=== PATIENT | female | born 1980 | race Caucasian/White ===

== ENCOUNTER 2018-07-22 10:48 | Outpatient (CLI) | payer OTHER, MEDICAID, SELFPAY ==
[2018-07-22 12:24] LABS: TSH (W/Ref FT4) 1.85 uIU/mL (0.358-3.74)
[2018-07-22 12:32] LABS: HCG Quant, Pregnancy < 1 mIU/mL (1-3)
[2018-07-23 13:52] LABS: Chlamydia Result Negative; GC Result Negative; Specimen Description URINE
== END 2018-07-22 11:08 ==
PROVIDERS: PCP Family Medicine; Visit Provider Nurse Practitioner Women's Health
DX: N93.9 Abnormal uterine and vaginal bleeding, unspecified (principal); Z11.3 Encounter for screening for infections with a predominantly sexual mode of transmission
CPT/HCPCS: 36415; 87491; 87591; 84443; 84702

== ENCOUNTER 2018-07-29 01:49 | Outpatient (CLI) | payer OTHER, MEDICAID, SELFPAY ==
--- NOTE | 2018-07-29 12:45 | DI.US_ITS ---
SYMPTOMS/DIAGNOSIS: ABNORMAL UTERINE BLEEDING, PELVIC PAIN, R10.2, N93.9, ? OVARIAN CYST PELVIC ULTRASOUND: A transabdominal and transvaginal examination was carried out. The uterus measures 8.4 x 5.3 x 6.3 cm with an endometrial stripe thickness of 7 mm. A small nabothian cyst is identified at the level of the cervix. A trace quantity of fluid is noted within the endometrial cavity at the level of the cervix. The right ovary measures 3.6 x 2.2 x 2.8 cm, the left ovary 5.7 x 2.0 x 3.0 cm. The kidneys are unremarkable. Note is also made of normal color flow in the ovaries. The left ovary is somewhat prominent, but no focal abnormality is seen. SUMMARY: A small nabothian cyst is demonstrated. There is a trace amount of fluid in the cervix. Note is made of some mild enlargement of the left ovary, which measures 5.7 cm.
== END 2018-07-29 02:09 ==
PROVIDERS: PCP Family Medicine; Visit Provider Nurse Practitioner Women's Health
DX: N93.9 Abnormal uterine and vaginal bleeding, unspecified (principal); R10.2 Pelvic and perineal pain; N83.8 Other noninflammatory disorders of ovary, fallopian tube and broad ligament; N88.8 Other specified noninflammatory disorders of cervix uteri
CPT/HCPCS: 76830; 76856

== ENCOUNTER 2018-10-22 12:49 | Outpatient (REF) | payer OTHER, MEDICAID, SELFPAY ==
[2018-10-22 21:20] LABS: Abs Immature Grans 0.01 k/cumm (0.0-0.09); Absolute Basophil Count 0.02 k/cumm (0.0-0.2); Absolute Eosinophil Count 0.07 k/cumm (0.0-0.7); Absolute Lymphocyte Count 1.65 k/cumm (1.2-3.4); Absolute Monocyte Count 0.51 k/cumm (0.11-0.7); Absolute Neutrophil Count 2.32 k/cumm (1.2-6.7); Basophils % 0.4; Eosinophils % 1.5; HCT 40.2 % (36.0-46.0); HGB 13.3 g/dL (12.0-15.5); Immature Grans % 0.2; Mean Corp. HGB Concentration 33.1 g/dL (32.0-36.0); Mean Corpuscular Hemoglobin 29.6 pg (27.0-33.0); Mean Corpuscular Volume 89.5 fL (80-95); Mean Platelet Volume 11.6 fL (8.0-11.0); Monocytes % 11.1; Neutrophils % 50.8; Platelet Count 259 x1000/uL (130-400); RBC 4.49 m/cumm (4.00-5.20); White Blood Cell Count 4.58 k/cumm (4.4-10.8)
[2018-10-26 00:11] LABS: Bartonella Henselae IgG <1:128 titer (<1:128); Bartonella Henselae IgM <1:20 titer (<1:20); Bartonella Quintana IgG <1:128 titer (<1:128); Bartonella Quintana IgM <1:20 titer (<1:20)
== END 2018-10-22 13:09 ==
LOC: NCHCN 12:49
PROVIDERS: PCP Family Medicine; Visit Provider Family Medicine
DX: R59.1 Generalized enlarged lymph nodes (principal)
CPT/HCPCS: 85025; 86611

== ENCOUNTER 2018-11-01 01:13 | Outpatient (CLI) | payer OTHER, SELFPAY ==
--- NOTE | 2018-11-01 15:48 | DI.US_ITS ---
SYMPTOM/DIAGNOSIS: LYMPHADENOPATHY, R59.1, ENLARGED GLAND, ? MASS SOFT TISSUE ULTRASOUND LEFT CERVICAL REGION: A soft tissue ultrasound of the left cervical region was performed to evaluate a palpable abnormality. The palpable abnormality corresponds to a 23 by 23 by 8 mm. in diameter mass with typical appearance of a lymph node with well defined echogenic hilum. No additional mass identified. Multiple incidental left thyroid lobe nodules are noted, the largest measuring roughly 12 mm. in greatest diameter with a mixed echogenic appearance. CONCLUSION: Palpable left cervical region mass corresponds to a mildly enlarged nonspecific lymph node. Incidental left thyroid indeterminate nodules noted, follow up thyroid ultrasound recommended in 6-12 months.
== END 2018-11-01 01:33 ==
PROVIDERS: PCP Family Medicine; Visit Provider Family Medicine
DX: R22.1 Localized swelling, mass and lump, neck (principal); R59.0 Localized enlarged lymph nodes; E04.8 Other specified nontoxic goiter
CPT/HCPCS: 76536

== ENCOUNTER 2019-02-08 07:37 | Outpatient (REF) | payer MEDICAID, SELFPAY ==
[2019-02-08 22:05] LABS: HCT 39.7 % (36.0-46.0); HGB 12.8 g/dL (12.0-15.5); Mean Corp. HGB Concentration 32.2 g/dL (32.0-36.0); Mean Corpuscular Hemoglobin 29.1 pg (27.0-33.0); Mean Corpuscular Volume 90.2 fL (80-95); Mean Platelet Volume 11.8 fL (8.0-11.0); Platelet Count 233 x1000/uL (130-400); RBC Distribution Width 12.8 % (11.7-14.6)
[2019-02-08 22:41] LABS: Anion Gap 9.6 mmol/L (3-11); BUN 20 mg/dL (7-18); CO2 26.4 mmol/L (21.0-32.0); CREATININE 0.99 mg/dL (0.55-1.02); Calcium 8.6 mg/dL (8.5-10.1); Calculated LDL 52 mg/dL; Chloride 109 mmol/L (98-107); Cholesterol 143 mg/dL (50-200); Glucose 91 mg/dL (70-100); HDL Cholesterol 75 mg/dL (40-60); Potassium 4.5 mmol/L (3.5-5.1); Sodium 145 mmol/L (136-145); Triglyceride 82 mg/dL (30-150)
== END 2019-02-08 07:57 ==
LOC: NCHCN 07:37
PROVIDERS: PCP Family Medicine; Visit Provider Family Medicine
DX: K21.9 Gastro-esophageal reflux disease without esophagitis (principal); Z13.220 Encounter for screening for lipoid disorders; Z00.00 Encounter for general adult medical examination without abnormal findings
CPT/HCPCS: 80048; 80061; 83721; 85027

== ENCOUNTER 2019-02-09 00:44 | Outpatient (CLI) | payer MEDICAID, SELFPAY ==
--- NOTE | 2019-02-09 12:50 | DI.MAMMO_ITS ---
SYMPTOMS/DIAGNOSIS: SCREENING, Z12.39 MAMMOGRAMS: The breast tissue is heterogeneously radiodense, which lowers the sensitivity of the study. There is no dominant mass. There are no suspicious calcifications and there has been no significant interval change when compared with prior images. SUMMARY: No evidence of malignancy, category 1. Yearly screening mammography is recommended. Breast density category C. MQSA ASSESSMENT OF FINDINGS: Negative. Category 1. Patient will receive a letter notifying them of these results. Bi-RADS category C. The breasts are heterogeneously dense, which may obscure small masses.
== END 2019-02-09 01:04 ==
PROVIDERS: PCP Family Medicine; Visit Provider Family Medicine
DX: Z12.31 Encounter for screening mammogram for malignant neoplasm of breast (principal); Z12.4 Encounter for screening for malignant neoplasm of cervix; Z11.51 Encounter for screening for human papillomavirus (HPV)
CPT/HCPCS: 77063; 77067; 88142; 87624

== ENCOUNTER 2019-02-09 11:46 | Outpatient (REF) | payer MEDICAID, SELFPAY ==
--- NOTE | 2019-02-09 11:10 | PAPFT_PTH ---
PATIENT: Cristina Jimenez LOC: [facility] U#:[id number] AGE/SX: 39/F ROOM: RE02/09/[address]: Autumn Delatorre NP : 1980 BED: DIS: 02/09/2019 SPEC #: [id number] RECD: 02/09/19 13:14 STATUS: ELVIS MCBRIDE #: [id number] RANDEE: 02/09/19 11:[address]: Autumn Delatorre NP DEPT: [facility] Cytology RECD BY: Kirk Gardiner ENTERED: 02/09/19 13:15 SP TYPE: PAPFT OTHR DR: Nataly Martinez Tissues: 1 - CX/ENDOCX FOR PAP SMEARS Procedures: PAP THIN PREP/UVM Screening HPV DNA PROBE Comments: [id number]
== END 2019-02-09 12:06 ==
LOC: LBN 11:46
PROVIDERS: PCP Family Medicine; Visit Provider Nurse Practitioner Women's Health
DX: Z12.4 Encounter for screening for malignant neoplasm of cervix (principal); Z11.51 Encounter for screening for human papillomavirus (HPV)
CPT/HCPCS: 88142; 87624

== ENCOUNTER 2019-04-06 19:24 | Emergency (ER) | payer MEDICAID, SELFPAY ==
[2019-04-06 19:31] VITALS: BP 119/71; PULSE 46; RESP 16; TEMP 37; O2SAT 100
--- NOTE | 2019-04-06 19:35 | ED.GENADUL_ITS ---
Discharge Plan Disposition Patient Disposition: HOME Condition: Good Discharge Details Chief Complaint: Laceration Clinical Impression: Finger laceration Primary Care Provider: Nataly Martinez ED Provider: Shanda Blevins Home Meds and New Rx's Prescriptions: No Action No Known Home Meds RF: 0 Discharge Instructions Instructions: Finger Laceration (ED), Skin Adhesive Care (ED) Additional Instructions: Keep wound clean, dry, covered. Tylenol and ibuprofen as needed for discomfort. Please monitor for signs of infection getting redness warmth, drainage, increased pain, fever/chills. If you develop these or the new/worsening symptoms please seek care urgently once again. Please do not put any ointment over the adhesive, moderate to come off naturally. When at work nor performing activities that which increased risk of infection, please wear gloves when appropriate. Referrals: Nataly Martinez [Primary Care Provider] - Medical Decision Making Patient is a 39 year old female presneting today with c/c of laceration of left middle finger. She was trying to cut the hem of sweatpants and slipped with knife. She has a curvilinear 1cm wound, not actively bleeding. Wound edges lie approximated fashion with no gap of the wound edges. Ligamentously intact. Full range of motion. Tetanus is up-to-date per patient report. Patient I discussed risk/benefits of closure with adhesive. She voiced understanding and wished to proceed. Wound was soaked and cleansed. With tourniquet in place, wound was further, examined to base in a bloodless field no foreign body or debris noted. Thin layer of adhesive was applied over the top of this. Patient tolerated this well. Discussed wound care in depth. We discussed signs symptoms of infection when to seek care urgently once again. All of their questions and concerns were addressed in agreement this plan. HPI General Mode of arrival: ambulatory . Date/Time Provider Initiated Documentation: 04/06/19 19:35 . Limitations to Documentation: no limitations . Information obtained by: patient, family and RN notes reviewed . History of Present Illness 39 year old F presents to the emergency department with the chief complaint of laceration to left 3rd digit, described as mild, with intensity rated at 1. Quality is described as burning, and is localized to the left and upper extremity. Patient reports no radiation. Patient started experiencing this minute(s) and it has been constant. No relieving factors improve symptom(s), No exacerbating factors reported . Patient notes no other symptoms.. Patient did receive the following treatments prior to arrival, none Related Data Home Medications Medication Instructions Recorded Confirmed Unknown [No Known Home Meds] 03/31/19 04/06/19 Allergies Allergy/AdvReac Type Severity Reaction Status Date / Time No Known Allergies Allergy Unverified 04/06/19 19:37 General Stated Complaint: Laceration MERRICK: 4 Review of Systems Constitutional Reports as per HPI, Denies chills and Denies fever(s) Musculoskeletal Reports as per HPI Integumentary/Breasts Reports as per HPI Neurologic Reports as per HPI, Denies sensory deficit and Denies paresthesias [facility], [facility] Medical History Chronic endometritis (Acute 12/02/16) Surgical History Craniotomy (~11/1984) benign meningioma removed. No residual deficits, no seizures GERD - unknown surgical procedure (~2010) Social History Smoking/Tobacco Use Status: Never Drug use: Never Do you feel safe at home: Yes Do you feel safe in your relationship?: Yes Female Reproductive History Menstrual control method: condoms History History 3 Para 2 Hx # Term Pregnancies Multiple births Hx # Pregnancies Ectopic pregnancies AB induced Hx Number of Living Children AB spontaneous 1 Exam Const General: cooperative, healthy appearing, comfortable, no acute distress and well developed Nutritional Appearance: average body habitus and well nourished Orientation: alert and awake Resp Effort & Inspection: normal respiratory effort, able to speak in complete sentences and no respiratory distress Cardio Rate: regular rate Rhythm: regular rhythm Skin Trauma: laceration (curvilinear laceration radial distal phalanx 3rd left digit) Neuro General: alert and awake Cognition: normal cognition Speech: speech normal Gait: normal gait Sensory Exam: no sensory deficits noted Extrem Left upper extremity: full ROM, normal capillary refill, no joint enlargement and hand Details: normal capillary refill, neuromotor exam normal, neurosensory exam normal, tendon exam normal, normal ROM of fingers, no swelling and laceration; abnormal to inspection (laceration ), no tenderness, ROM normal, no unusual warmth and no crepitus; abnormal to inspection (laceration as above) Hand/finger images: 1. laceration. 1cm in length. Into subq tissue, no drainage, no deep structures involved. Psych Appearance: grossly normal and well kempt Mental Status: mental status grossly normal Speech and Movement: speech and movement normal Course Vital Signs Temperature 37.0 C 04/06/19 19:31 Pulse 46 L 04/06/19 19:31 Respiratory Rate 16 04/06/19 19:31 Blood Pressure 119/71 04/06/19 19:31 Pulse Oximetry 100 04/06/19 19:31 Temperature 37.0 C 04/06/19 19:31 Temperature Source Temporal Artery Scan 04/06/19 19:31 Pulse 46 L 04/06/19 19:31 Respiratory Rate 16 04/06/19 19:31 Respiratory Effort 04/06/19 19:31 Blood Pressure 119/71 04/06/19 19:31 Pulse Oximetry 100 04/06/19 19:31 Oxygen Delivery Method Room Air 04/06/19 19:31 Oxygen Flow Rate 0 04/06/19 19:31 Pain Level 1 04/06/19 19:31
== END 2019-04-06 20:27 | disposition home or self-care (01) ==
PROVIDERS: Emergency Provider Physician Assistant; PCP Family Medicine
DX: S61.213A Laceration without foreign body of left middle finger without damage to nail, initial encounter (principal); W26.0XXA Contact with knife, initial encounter
CPT/HCPCS: 12001

== ENCOUNTER 2019-09-11 03:44 | Emergency (ER) | payer MEDICAID, SELFPAY ==
[2019-09-11 03:48] VITALS: BP 136/87; PULSE 99; RESP 16; TEMP 36.6; O2SAT 99
--- NOTE | 2019-09-11 04:01 | ED.GENADUL_ITS ---
Discharge Plan Disposition Patient Disposition: HOME Condition: Good Discharge Details Chief Complaint: Abd Prob Clinical Impression: Dehydration, Chronic GERD, Dizziness Primary Care Provider: Nataly Martinez ED Provider: Angel Tovar Home Meds and New Rx's Prescriptions: New meclizine 25 mg tablet 25 mg PO BID Qty: 14 RF: 0 Discharge Instructions Instructions: Dehydration (ED), Dizziness (ED) Additional Instructions: Please take the meclizine for your dizziness. Please make sure to drink 10 to 12 cups of water per day. Please follow-up closely with your primary care provider in regards to your thyroid levels. If you notice any worsening of your symptoms, or any new symptoms such as vomiting, diarrhea, fever, chills, shortness of breath, chest pain, numbness, weakness, or fainting , please return immediately to the emergency department for reevaluation. Please follow up with your primary care provider as soon as possible for reassessment and reevaluation . As always, it was a pleasure participating in your medical care today. Referrals: Nataly Martinez [Primary Care Provider] - Medical Decision Making This is a 39-year-old female who presents with a notably atypical story. The patient states that she was diagnosed with a panic attack 3 days ago at her PCPs office. This resolved eventually and she was discharged home. She is remained relatively asymptomatic until this evening when she has had a plethora of various symptoms including left upper quadrant achiness, nausea, warmth in her left neck, palpitation which was transient, dizziness. She denies any red flags of syncope, crushing chest pain, arm neck or shoulder pain. She denies any concerning red flags for PE or DVT. Her neck is unremarkable, thyroid is unremarkable, no carotid bruits. No neurologic deficits. She does have notably dry mucous membranes, and she is mildly tachycardic. Differential is extremely broad, but with no significant objective findings on exam, I am uncertain as to the exact etiology of her symptoms. Dehydration and mild gastric ulcer may certainly be a component especially in light of her chronic GERD. We did discuss options of CT imaging of the neck. I did discuss imaging options for the patient and at this time through notable discussion, weighing the risks and benefits, and a shared decision making process the patient has refused imaging at this time. Patient is of an appropriate age to make decisions. The patient is of sound mind, appears clinically sober, and has [place] to make decisions by my clinical exam. Respecting the patient's wishes we will hold off on imaging. At this time we will gently rehydrate, evaluate for any significant electrolyte or lab abnormalities, give GI cocktail and reassess. Signs and symptoms at this time are clinically inconsistent with massive PE, ACS, acute surgical abdomen, neurologic deficit secondary to a significant vascular abnormality. 5:30 AM The patient's laboratory work-up is returned relatively unremarkable. No significant white count or left shift. No bandemia. Electrolytes are normal, renal function stable. Anion gap is minimally elevated at 11.5. Lipase normal. TSH is slightly elevated at 4.58 however free T4 is normal. Patient's was slightly dizzy even after fluids. Meclizine was given. Patient would still like to hold off on any additional imaging. At this time with no evidence of significant electrolyte abnormality or acute life-threatening abnormality I do feel that she is stable for discharge home. I do feel that she was certainly mildly dehydrated would continue to benefit from continued fluids at home. Per who is at bedside, as well as from the patient she barely drinks any water in general. The improvement with meclizine I do feel that she would benefit from home use of this. Although she has no significant nystagmus, and shows no clinical evidence of significant intracranial etiology we will prescribe meclizine for home use for potential mild dizziness secondary to her peripheral vertiginous etiology. Discussed red flags for which to return as well as the importance of close follow-up with her PCP and her already scheduled ENT appointment this month. I have extensively reviewed the treatment plan and discharge instructions with the patient and their family. I have addressed all patient concerns at this time. The patient and family was made aware of what symptoms to monitor for that would warrant a return to the emergency department. Discussed the plan with the patient and family, they demonstrate verbal understanding and agreement with our assessment and plan at this time. EKG 4: 19 Rate 79, [place] 116 however no evidence of delta wave. QTc 456, QRS 86, sinus rhythm, slightly atypical T wave morphology, does slightly resemble a mild U wave, however no evidence of Wellens syndrome, Brugada syndrome, or STEMI. No other acute abnormalities. HPI General Date/Time Provider Initiated Documentation: 09/11/19 03:47 . HPI Narrative: T his is a 39-year-old female who presents today to the emergency department for an evaluation. Patient has a challenging history. Past medical history is positive for chronic endometriosis, craniotomy at the age of 14, and GERD. Patient states that 3 days ago she developed a panic attack, was seen by her PCP, and eventually discharged home without any diagnostic evaluation. Panic attacks resolved and she was given a medication for which she is uncertain of the name. Patient states that she was fine until this evening when she developed a plethora of various symptoms including a warmness in the left side of her neck, mild nausea, mild left upper quadrant pain, uneasiness and tremulousness, mild headache, mild palpitations, and a mild general unease. She comes to the ER for further assessment. She is unable to describe any aggravating or relieving symptoms. She denies any vomiting, diarrhea, severe chest pain, significant chest heaviness, cough, hemoptysis, numbness or tingling or focal weakness. She denies any syncope, or family history of PE, dissection, aneurysm, or early cardiac disease. She denies any other complaints at this time. No other modifying factors. Related Data Home Medications Medication Instructions Recorded Confirmed meclizine 25 mg PO BID #14 tab 09/11/19 Previous Rx's Medication Instructions Recorded meclizine 25 mg PO BID #14 tab 09/11/19 Allergies Allergy/AdvReac Type Severity Reaction Status Date / Time No Known Allergies Allergy Unverified 04/06/19 19:37 General MERRICK: 4 Review of Systems All systems reviewed & are unremarkable except as noted in HPI and below PFSH Social History Smoking/Tobacco Use Status: Never Drug use: Never Do you feel safe at home: Yes Do you feel safe in your relationship?: Yes Female Reproductive History Menstrual control method: condoms History History 3 Para 2 Hx # Term Pregnancies Multiple births Hx # Pregnancies Ectopic pregnancies AB induced Hx Number of Living Children AB spontaneous 1 Exam Narrative Exam Narrative: 1.Const: Well-nourished, Well-developed, appearing stated age 2.Eyes: PERRL, no conjunctival injection, and symmetrical lids. 3.ENT: Atraumatic external nose and ears. Dry MM. Neck: Symmetric, trachea midline, No thyromegaly. Patient demonstrates no significant palpable mass over her thyroid. No evidence of carotid bruits. Patient demonstrates good movement of cervical neck. There is no nuchal rigidity, no nuchal tenderness. Patient is able to flex the neck without any difficulty or significant pain. Negative Kernig's and Brudzinski sign. No lump swelling or asymmetry for her neck. 4.CVS: +S1/S2, No murmurs or gallops. Peripheral pulses 2+ and equal in all extremities. Brisk capillary refill in all extremities. 5.RESP: Unlabored respiratory effort. Clear to auscultation bilaterally. No wheezes rales or rhonchi 6.GI: Soft, Nondistended, No hepatosplenomegaly. No guarding or rebound. Minimal epigastric tenderness in left upper quadrant. No pain at McBurney's point, negative Dumont sign. 7.MSK: Normocephalic/Atraumatic, Extremities w/o deformity or ttp No cyanosis or clubbing, Normal movement of all extremities 8.Skin: Warm, Dry. No rashes or lesions. 9.Neuro: assistant therapy aide II-XII grossly intact. Sensation grossly intact, no focal n eurologic deficits. 10.Psych: (AAO) x3. Appropriate mood and affect
[2019-09-11] MEDS: Normal Saline 1,000 ML 1000 ML IV (04:17)
[2019-09-11 04:24] LABS: Abs Immature Grans 0.01 k/cumm (0.0-0.09); Absolute Basophil Count 0.03 k/cumm (0.0-0.2); Absolute Eosinophil Count 0.09 k/cumm (0.0-0.7); Absolute Lymphocyte Count 2.11 k/cumm (1.2-3.4); Absolute Monocyte Count 0.84 k/cumm (0.11-0.7); Basophils % 0.5; Eosinophils % 1.6; HCT 41.5 % (36.0-46.0); HGB 13.7 g/dL (12.0-15.5); Immature Grans % 0.2 %; Lymphocytes % 36.5; Mean Corpuscular Hemoglobin 29.2 pg (27.0-33.0); Mean Corpuscular Volume 88.5 fL (80-95); Mean Platelet Volume 10.5 fL (8.0-11.0); Monocytes % 14.5; Neutrophils % 46.7; Platelet Count 287 x1000/uL (130-400); RBC 4.69 m/cumm (4.00-5.20); RBC Distribution Width 12.9 % (11.7-14.6); White Blood Cell Count 5.78 k/cumm (4.4-10.8)
[2019-09-11 04:41] LABS: ALT 20 U/L (14-59); AST 23 U/L (15-37); Albumin 4.4 g/dL (3.4-5.0); Alkaline Phosphatase 59 U/L (46-116); Anion Gap 11.5 mmol/L (3-11); BUN 17 mg/dL (7-18); Bilirubin, Total 0.5 mg/dL (0.2-1.0); CO2 26.5 mmol/L (21.0-32.0); CREATININE 1.06 mg/dL (0.55-1.02); Calcium 8.7 mg/dL (8.5-10.1); Chloride 104 mmol/L (98-107); Estimated GFR 58.02 (mL/min/1.73m2); Glucose 94 mg/dL (74-106); Lipase 170 U/L (73-393); Potassium 3.5 mmol/L (3.5-5.1); Sodium 142 mmol/L (136-145); TSH (W/Ref FT4) 4.58 uIU/mL (0.36-3.74); Total Protein 7.6 g/dL (6.4-8.2)
--- NOTE | 2019-09-11 04:47 | NUR.NOTE ---
Nursing Note: Pt states that abd pain is decreased after GI cocktail.
[2019-09-11 05:00] LABS: FREE T4 1.13 ng/dL (0.76-1.46)
[2019-09-11] MEDS: Meclizine 25 MG TAB PO (05:08)
[2019-09-11 05:54] VITALS: BP 108/58; PULSE 64; RESP 17; TEMP 36.8
== END 2019-09-11 05:55 | disposition home or self-care (01) ==
PROVIDERS: Emergency Provider Student in an Organized Health Care Education/Training Program; PCP Family Medicine
DX: E86.0 Dehydration (principal); K21.9 Gastro-esophageal reflux disease without esophagitis; R42 Dizziness and giddiness; R00.2 Palpitations
CPT/HCPCS: 36415; 80053; 81025; 83690; 93005; 96360; 99285; 84439; 84443; 85025; 93010; 99284

== ENCOUNTER 2019-12-27 19:39 | Outpatient (REF) | payer MEDICAID, SELFPAY ==
[2019-12-27 21:11] LABS: TSH (W/Ref FT4) 1.76 uIU/mL (0.36-3.74)
== END 2019-12-27 19:59 ==
LOC: NCHCN 19:39
PROVIDERS: PCP Family Medicine; Visit Provider Nurse Practitioner Family
DX: R94.6 Abnormal results of thyroid function studies (principal)
CPT/HCPCS: 84443

== ENCOUNTER 2020-02-07 22:18 | Outpatient (REF) | payer MEDICAID, SELFPAY ==
[2020-02-09 04:30] LABS: Vitamin D 25 Total 31.1 ng/ml (30-100)
== END 2020-02-07 22:38 ==
LOC: NCHCN 22:18
PROVIDERS: PCP Family Medicine; Visit Provider Nurse Practitioner Family
DX: R53.83 Other fatigue (principal); F41.1 Generalized anxiety disorder
CPT/HCPCS: 82306

== ENCOUNTER 2020-05-26 19:56 | Emergency (ER) | payer MEDICAID, SELFPAY ==
[2020-05-26 20:03] VITALS: BP 128/66; PULSE 64; RESP 20; TEMP 36.6; O2SAT 99
--- NOTE | 2020-05-26 20:10 | W.ED.GENAD ---
Discharge Plan Disposition Patient Disposition: HOME Condition: Stable Discharge Details Clinical Impression: Abdominal pain, Cyst of left ovary Primary Care Provider: Lynn Hernadez ED Provider: Zayda Morton Home Meds and New Rx's Prescriptions: No Action omeprazole 40 mg Capsule,Delayed Release(Dr/Ec) 40 mg PO DAILY RF: 0 Discharge Instructions Instructions: Ovarian Cyst (ED), Abdominal Pain (ED) Additional Instructions: At this time your lab work-up, CT abdomen pelvis are largely within normal limits. Does show you have a small 2 cm left ovarian cyst. I do not feel that this is what is causing your pain at this time. For the next 48 to 72 hours I encourage clear liquids and then a bland diet as tolerated. Follow up with primary care provider in 3-5 days. Return to ED sooner if any worsening or concerns. Increase oral fluids. Please take Tylenol or Ibuprofen with food every 4-6 hours as needed for pain and swelling. Please return to the ED for any worsening pain, fever, vomiting or any concerns. Referrals: Lynn Hernadez [Primary Care Provider] - Medical Decision Making 40-year-old female presents to the ED chief complaint of generalized abdominal pain which has been present for approximately 2 weeks. She reports midepigastric and periumbilical tenderness associated with nausea. Denies any vomiting or diarrhea no fevers. She does have a history of chronic GERD, endometritis. She denies any dysuria or problems urinating. She reports symptoms began coinciding with anxiety which has since then resolved. 2032: Informed by RN, that patient has only been taking her omeprazole twice weekly. CBC shows white blood cell count of 5.77, hemoglobin 13.8, hematocrit 43.5, sodium 139, BUN 12, creatinine 1.08, GFR 56 magnesium is 2.2, urinalysis shows trace urine blood. Urine is negative for leukocytes or nitrites. Labs are largely within normal limits. Exam: CT Abdomen And Pelvis With Contrast Exam date and time: 05/26/2020 8:17 PM Age: 40 years old Clinical indication: Patient HX: Lower and upper abdominal pain TECHNIQUE: Imaging protocol: Computed tomography of the abdomen and pelvis with intravenous contrast. COMPARISON: US PELVIS TRANSVAGINAL 07/29/2018 8:33 AM FINDINGS: Liver: Periportal edema. Small probable hepatic cysts. Gallbladder and bile ducts: Normal. No calcified stones. No ductal dilation. Pancreas: Normal. No ductal dilation. Spleen: Normal. No splenomegaly. Adrenals: Normal. No mass. Kidneys and ureters: Normal. No hydronephrosis. Stomach and bowel: Unremarkable. No obstruction. No mucosal thickening. Appendix: Normal appendix. Intraperitoneal space: Trace fluid in the pelvis. No free air. Vasculature: Unremarkable. No abdominal aortic aneurysm. Lymph nodes: Unremarkable. No enlarged lymph nodes. Urinary bladder: Unremarkable as visualized. Reproductive: 2 cm corpus luteal cyst of the left ovary. Bones/joints: Degenerative disc disease at L5-S1. Soft tissues: Unremarkable. IMPRESSION: 2 cm corpus luteal cyst of the left ovary and trace fluid in the pelvis. Discussed CT results with patient and strict return instructions, verbalized understanding. HPI General Mode of arrival: ambulatory. Date/Time Provider Initiated Documentation: 05/26/20 19:58. Limitations to Documentation: no limitations. Information obtained by: patient. HPI Narrative: 40-year-old female presents to the ED chief complaint of generalized abdominal pain which has been present for approximately 2 weeks. She reports midepigastric and periumbilical tenderness associated with nausea. Denies any vomiting or diarrhea no fevers. She does have a history of chronic GERD, endometritis. She denies any dysuria or problems urinating. She reports symptoms began coinciding with anxiety which has since then resolved. Related Data Home Medications Medication Instructions Recorded Confirmed omeprazole 40 mg PO DAILY 05/26/20 05/26/20 Allergies Allergy/AdvReac Type Severity Reaction Status Date / Time doxycycline Allergy Unknown Skin Rash Unverified 05/26/20 20:11 General Stated Complaint: Abd Prob MERRICK: 3 Review of Systems Narrative: Constitutional: Negative for weight loss, alert and oriented, well groomed, normal body habitus, appears comfortable. HEENT: Denies trauma, headaches, blurry vision, nasal discharge, sore throat, trouble swallowing. Chest: Denies chest pain, palpitations, irregular rhythm, hypertension. Respiratory: Denies Shortness of breath, cough, hemoptysis. GI: Denies dysuria, hematuria, flank pain, rectal bleeding. Positive generalized abdominal pain, nausea. Neuro: Denies dizziness, blurry vision, weakness, syncope, headache or facial numbness. Hematologic: Denies easy bruising, intolerance to heat or cold, hair loss. [facility] Medical History (Updated 05/26/20 @ 22:02 by Zayda Morton) Chronic endometritis (12/02/16) Surgical History Craniotomy (~11/1984) benign meningioma removed. No residual deficits, no seizures GERD - unknown surgical procedure (~2010) Family History Mother No problems noted. Father , COPD No problems noted. Grandmother , renal failure No problems noted. Social History Smoking/Tobacco Use Status: Never Drug use: Never Do you feel safe at home: Yes Do you feel safe in your relationship?: Yes Female Reproductive History Menstrual control method: condoms History History 3 Para 2 Hx # Term Pregnancies Multiple births Hx # Pregnancies Ectopic pregnancies AB induced Hx Number of Living Children AB spontaneous 1 Exam Narrative Exam Narrative: Constitutional: Alert and oriented x3. Appears stated age. Normal body habitus. Head: Normocephalic, no trauma. Eyes: Pupils PERRLA, Red reflex noted, EOM's intact. Eyelids symmetrical without lesions, discharge, or swelling. ENT: Bilateral TM's WNL, External ear normal to inspection, no mastoid TTP, swelling, or erythema, Nasal turbinates WNL, no nasal discharge. Normal dentition, Posterior pharynx WNL, no exudate. Chest: RRR, Normal S1, S2, distal pulses intact. Resp: Lungs clear to auscultation bilaterally, no wheezes, rales, or rhonchi. GI: Generalized abdominal pain, soft non-distended. Musculoskeletal: Normal gait, 5/5 strength to all four extremities. Skin: No suspicious rashes or lesions. Capillary refill less than 2 sec. Neurologic: Cranial nerves II-XII intact. Alert and oriented x 3. DTR's intact. Hematologic/Lymphatic: No ecchymosis, no lymphadenopathy. Course Vital Signs Vital signs: Vital Signs Temperature 36.6 C 05/26/20 20:03 Pulse 64 05/26/20 20:03 Respiratory Rate 20 05/26/20 20:03 Blood Pressure 128/66 05/26/20 20:03 Pulse Oximetry 99 05/26/20 20:03 Temperature 36.6 C 05/26/20 20:03 Temperature Source Tympanic 05/26/20 20:03 Pulse 64 05/26/20 20:03 Respiratory Rate 20 05/26/20 20:03 Respiratory Effort 05/26/20 20:06 Blood Pressure 128/66 05/26/20 20:03 Pulse Oximetry 99 05/26/20 20:03 Oxygen Delivery Method Room Air 05/26/20 20:03 Oxygen Flow Rate 0 05/26/20 20:03 Pain Level 7 05/26/20 20:03
--- NOTE | 2020-05-26 20:15 | DI.CT_ITS ---
EXAM: CT ABDOMEN PELVIS W CLINICAL HISTORY: Abdominal Pain. TECHNIQUE: Imaging Protocol: Axial computed tomography images with coronal and sagittal reformatted images were created and reviewed CONTRAST MATERIAL: Intravenous: Omnipaque 350 Contrast volume:100 cc Oral: no COMPARISON: CT ABD PELVIS WITH CONTRAST from 12/27/2010 FINDINGS: ABDOMEN: Lung Bases: Normal where visualized. Liver: Normal density. Multiple tiny cysts. Gallbladder and biliary tract: No radiodense calculus or dilation. Pancreas: Normal density, no abnormal calcifications or inflammatory process. Spleen: Normal. Kidneys: Normal size, contour and axis. No radiodense stones or obstructive uropathy. No masses seen. Adrenal glands: No masses seen. Abdominal Aorta: Abdominal portion non-dilated. PELVIS: Bladder: Symmetric distention, no gross wall thickening. Bowel: Surgical clips near the GE junction. No obstruction or bowel wall thickening. Peritoneal cavity: No ascites, collection or mesenteric inflammatory response. Bones: Degenerative disc changes at L5-S1. Reproductive organs: Mildly enlarged uterus.. Collapsing follicle left ovary. Physiologic amount of pelvic fluid. Lymph nodes: Unremarkable. Impression: No acute abnormality.. RADIATION DOSE DELIVERED: 805.86mGy.cm Total DLP DATA REPOSITORY: All CT scans at this facility are submitted to the National Radiology Data Registry (NRDR) Dose Index Registry (DIR) with the [employer] (ACR). RADIATION OPTIMIZATION: All CT scans at this facility use at least one of these dose optimization te chniques: automated exposure control; mA and/or kV adjustment per patient size (includes targeted exa ms where dose is matched to clinical indication); or iterative reconstruction.
[2020-05-26 20:21] LABS: Bilirubin Negative (Negative); Blood Trace-intact (Negative); Clarity Clear (Clear); Glucose Negative (Negative); Ketones Negative (Negative); Leukocyte Esterase Negative (Negative); Nitrite Negative (Negative); Specific Gravity <= 1.005 (1.005-1.025); Urobilinogen 0.2 EU/dL (Up TO 0.2); pH 5.5 (5-8)
[2020-05-26 20:31] LABS: Abs Immature Grans 0.01 10^3/uL (0.0-0.06); Absolute Basophil Count 0.02 10^3/uL (0.0-0.2); Absolute Eosinophil Count 0.04 10^3/uL (0.0-0.7); Absolute Lymphocyte Count 1.79 10^3/uL (1.2-3.4); Absolute Monocyte Count 0.68 10^3/uL (0.1-0.8); Absolute Neutrophil Count 3.23 10^3/uL (1.2-6.7); Basophils % 0.3; Eosinophils % 0.7; HCT 43.5 % (36.0-46.0); HGB 13.8 g/dL (11.2-15.7); Immature Grans % 0.2; MCH 28.7 pg (27.0-33.0); MCHC 31.7 % (32.0-36.0); MCV 90.4 fL (80-95); MPV 11.1 fL (8.0-11.0); Monocytes % 11.8; Nucleated RBC 0 %; Platelet Count 267 10^3/uL (130-400); RBC 4.81 10^6/uL (3.93-5.22); RDW-SD 39.8 fL; WBC 5.77 10^3/uL (4.4-10.8)
[2020-05-26 20:36] LABS: Bacteria Rare HPF (Negative); Epithelial Cells Many HPF (Negative); RBC 0-2 HPF (0-2)
[2020-05-26 20:37] LABS: C & S Indicated? No; Crystals Negative HPF (Negative); Mucus Negative (Negative)
[2020-05-26] MEDS: Omnipaque 350 MG/ML 100 ML BTL IJ (20:41)
[2020-05-26] MEDS: Normal Saline - Diluent 50 ML VIAL IV (20:41)
[2020-05-26 20:44] LABS: ALT 15 U/L (14-59); AST 21 U/L (15-37); Albumin 4.5 g/dL (3.4-5.0); Alkaline Phosphatase 56 U/L (46-116); BUN 12 mg/dL (7-18); Bilirubin, Total 0.4 mg/dL (0.2-1.0); CREATININE 1.08 mg/dL (0.55-1.02); Calcium 9.4 mg/dL (8.5-10.1); Chloride 105 mmol/L (98-107); Estimated GFR 56.48 (mL/min/1.73m2); Glucose 85 mg/dL (74-106); Magnesium 2.2 mg/dL (1.8-2.4); Potassium 3.5 mmol/L (3.5-5.1); Sodium 139 mmol/L (136-145); Total Protein 7.8 g/dL (6.4-8.2)
--- NOTE | 2020-05-26 22:00 | DI.VRAD_ITS ---
PROCEDURE INFORMATION: Exam: CT Abdomen And Pelvis With Contrast Exam date and time: 05/26/2020 8:17 PM Age: 40 years old Clinical indication: Patient HX: Lower and upper abdominal pain TECHNIQUE: Imaging protocol: Computed tomography of the abdomen and pelvis with intravenous contrast. COMPARISON: US PELVIS TRANSVAGINAL 07/29/2018 8:33 AM FINDINGS: Liver: Periportal edema. Small probable hepatic cysts. Gallbladder and bile ducts: Normal. No calcified stones. No ductal dilation. Pancreas: Normal. No ductal dilation. Spleen: Normal. No splenomegaly. Adrenals: Normal. No mass. Kidneys and ureters: Normal. No hydronephrosis. Stomach and bowel: Unremarkable. No obstruction. No mucosal thickening. Appendix: Normal appendix. Intraperitoneal space: Trace fluid in the pelvis. No free air. Vasculature: Unremarkable. No abdominal aortic aneurysm. Lymph nodes: Unremarkable. No enlarged lymph nodes. Urinary bladder: Unremarkable as visualized. Reproductive: 2 cm corpus luteal cyst of the left ovary. Bones/joints: Degenerative disc disease at L5-S1. Soft tissues: Unremarkable. IMPRESSION: 2 cm corpus luteal cyst of the left ovary and trace fluid in the pelvis. Dictated and Authenticated by: Hubert Jimenez MD. Ordering:ROSA Priest MD
[2020-05-26 22:10] VITALS: BP 105/45; PULSE 50; RESP 18; O2SAT 100
== END 2020-05-26 22:10 | disposition home or self-care (01) ==
PROVIDERS: Emergency Provider Registered Nurse Emergency; PCP Nurse Practitioner Family
DX: R10.13 Epigastric pain (principal); N83.292 Other ovarian cyst, left side; R11.0 Nausea; K21.9 Gastro-esophageal reflux disease without esophagitis
CPT/HCPCS: 36415; 80053; 81025; 99285; 74177; 81003; 81015; 83735; 85025; 99284; J3490

== ENCOUNTER 2020-07-24 00:39 | Outpatient (CLI) | payer MEDICAID, SELFPAY ==
--- NOTE | 2020-07-24 | DI.US_ITS ---
EXAM: US THYROID CLINICAL HISTORY: MULTINODULAR GOITER,E04.2. TECHNIQUE: Ultrasound thyroid performed using standard protocol. COMPARISON: No exams were available for comparison FINDINGS: ISTHMUS: 2 mm RIGHT LOBE: Size: 4.9 x 2 x 1.3 cm Echogenicity: Normal. Vascularity: Normal. Nodules: No suspicious nodules are seen. No follow-up is necessary. LEFT LOBE: Size: 4.6 x 1.3 x 1.6 cm Echogenicity: Normal. Vascularity: Normal. Nodules: There is a 0.8 x 0.4 x 0.7 cm nodule in the midpole. It has mixed cystic and a hyperechoic solid component. There is an echogenic focus noted. The finding is consistent with a TiRads level 3 nodule. OTHER FINDINGS: None. IMPRESSION: Ti-Rads level 3 nodule in the left lobe of the thyroid gland which is less than 1 cm in size. No ruddy picious nodules in the left lobe of the thyroid gland. DATA REPOSITORY:
== END 2020-07-24 00:59 ==
PROVIDERS: PCP Nurse Practitioner Family; Visit Provider Nurse Practitioner Family
DX: E04.1 Nontoxic single thyroid nodule (principal)
CPT/HCPCS: 76536

== ENCOUNTER 2021-01-22 14:53 | Emergency (ER) | payer MEDICAID, SELFPAY ==
--- NOTE | 2021-01-22 14:56 | ED.GENADUL_ITS ---
Discharge Plan Disposition Patient Disposition: HOME Condition: Improving Discharge Details Clinical Impression: Back pain Primary Care Provider: Lynn Hernadez ED Provider: Theresa Iglesias Home Meds and New Rx's Prescriptions: New methocarbamol 500 mg tablet 500 mg PO Q6H PRN (Reason: muscle spasm) Qty: 14 RF: 0 ondansetron 4 mg tablet,disintegrating 4 mg PO TID PRN (Reason: nausea and vomiting) Qty: 6 RF: 0 Continued omeprazole 40 mg Capsule,Delayed Release(Dr/Ec) 40 mg PO DAILY RF: 0 famotidine 20 mg Tablet 20 mg PO DAILY RF: 0 Discharge Instructions Instructions: Back Pain (ED) Additional Instructions: Alternate ice and heat to the affected area(s) several times daily for 20 minutes at a time. Alternate tylenol and motrin as needed and directed for pain. Take the muscle relaxer as needed and directed for pain. Take the Zofran as needed and directed for nausea and vomiting. Follow-up with your primary care doctor in 1 week. Return to the emergency department with any worsening or new concerning symptoms. Discharge Data Discharge Date/Time-TO BE ENTERED AT DEPARTURE: 01/22/21 18:59 Discharge Physician: Theresa Iglesias Medical Decision Making 1500 -- 41-year-old female presents with right flank pain with radiation to her right lower quadrant for the past 4 days. Patient appears comfortable and nontoxic. She is mildly anxious. Vitals within normal limits. She is afebrile. No CVA tenderness. Mild localized tenderness right lumbar region. Abdomen soft and nontender. Urine negative. Diagnosis includes kidney stone, pyelonephritis, muscle strain. Also consider appendicitis, cholecystitis. She has no abdominal tenderness, appendicitis and cholecystitis lower on my differential, but will obtain screening labs, CT renal colic and give a dose of Toradol and Zofran and reassess. We will also obtain guaiac due to complaint of black stool. 1700 -- Patient reassessed --she states she feels better. Pain is now 1/10. Due to high volume in the ED, patient has not yet gone to CT. Labs reviewed. Normal white blood cell count at 5. Normal renal function. Negative urinalysis. 1830 --CT reviewed and negative for acute findings. Incidental findings of multiple stones in the appendiceal lumen but no evidence of appendicitis. Patient reassessed and she states pain is still improved but has some nausea but feels good to go home. She states she has occasional right leg pain and cramping. Discussed that her symptoms may be due to lumbar strain or sciatica. Also discussed to continue to monitor for possible development of a rash in the case of shingles. At this point in time, will plan to treat as a possible muscle strain with NSAIDs, ice and heat and will send a prescription for muscle relaxers electronically to her pharmacy Advised to follow up with the primary care doctor for re-evaluation. Usual and customary return precautions given prior to discharge. Medical Records Medical records reviewed: Yes I reviewed the patient's medical records. Imaging Data Radiologic Study: Radiologist's impression: CT Abdomen And Pelvis Without Contrast Exam date and time: 01/22/2021 15:24 Age: 41 years old Clinical indication: Other: R flank pain, r/i kidney stone, pyelo, R/O appendix, R/O gallstones TECHNIQUE: Imaging protocol: Computed tomography of the abdomen and pelvis without contrast. COMPARISON: CT ABDOMEN PELVIS W 05/26/2020 20:37 FINDINGS: Liver: No hepatic masses on noncontrast imaging. Gallbladder and bile ducts: No calcified stones. No ductal dilation. Pancreas: No ductal dilation. No masses. Spleen: Small splenic calcifications compatible with benign granulomata. No splenomegaly. Adrenal glands: No mass. Kidneys and ureters: Nonobstructive subcentimeter left nephrolithiasis is similar to prior. No right nephrolithiasis. No right hydronephrosis. Stomach and bowel: Surgical clips again seen adjacent to the proximal stomach. The gastric wall is difficult to assess given decompression. No gastric dilation. Appendix: Multiple small stones are present in the appendiceal lumen however there is no appendiceal dilation or periappendiceal inflammatory change. No evidence of appendicitis. Intraperitoneal space: No free air. No significant fluid collection. Vasculature: No abdominal aortic aneurysm. Lymph nodes: No significantly enlarged lymph nodes. Urinary bladder: Unremarkable as visualized. Reproductive: Unremarkable as visualized. Bones/joints: Distal lumbar spondylosis. No acute fracture or subluxation. Soft tissues: No suspicious lesions. IMPRESSION: 1. No acute findings. 2. Incidental findings as described. Lab Data Lab results reviewed: Yes I reviewed the patient's lab results. Labs: Laboratory Tests Range/Units 01/22/21 01/22/2101/22/21 15:08 15:30 15:30 WBC (4.4-10.8) 10^3/uL 5.94 RBC (3.93-5.22) 10^6/uL 4.16 Hgb (11.2-15.7) g/dL 12.0 Hct (36.0-46.0) % 37.5 MCV (80-95) fL 90.1 MCH (27.0-33.0) pg 28.8 MCHC (32.0-36.0) % 32.0 RDW (11.7-14.6) % 12.1 Plt Count (130-400) 10^3/uL 274 MPV (8.0-11.0) fL 10.3 Immature Gran % 0.2 Neutrophils % 60.4 Lymphocytes % 29.0 Monocytes % 9.1 Eosinophils % 0.8 Basophils % 0.5 Nucleated RBC % % 0 Absolute Neutrophils (1.2-6.7) 10^3/uL 3.59 Absolute Lymphocytes (1.2-3.4) 10^3/uL 1.72 Absolute Monocytes (0.1-0.8) 10^3/uL 0.54 Absolute Eosinophils (0.0-0.7) 10^3/uL 0.05 Absolute Basophils (0.0-0.2) 10^3/uL 0.03 Sodium (136-145) mmol/L 142 Potassium (3.5-5.1) mmol/L 3.5 Chloride (98-107) mmol/L 106 Carbon Dioxide (21.0-32.0) mmol/L 28.8 Anion Gap (3-11) mmol/L 7.2 BUN (7-18) mg/dL 16 Creatinine (0.55-1.02) mg/dL 1.0 Estimated GFR/1.73 m2 (mL/min/1.73m2) >= 60.00 Glucose (74-106) mg/dL 97 Calcium (8.5-10.1) mg/dL 8.7 Total Bilirubin (0.2-1.0) mg/dL 0.3 AST (15-37) U/L 20 ALT (14-59) U/L 24 Alkaline Phosphatase (46-116) U/L 59 Total Protein (6.4-8.2) g/dL 7.3 Albumin (3.4-5.0) g/dL 4.0 Lipase (73-393) U/L 180 Urine Color (Yellow) Yellow Urine Clarity (Clear) Clear Urine pH (5-8) 5.5 Ur Specific [place] (1.005-1.025) <= 1.005 Urine Protein (Negative) mg/dL Negative Urine Ketones (Negative) mg/dL Negative Urine Blood (Negative) Negative Urine Nitrite (Negative) Negative Urine Bilirubin (Negative) Negative Urine Urobilinogen (Up TO 0.2) EU/dL 0.2 Ur Leukocyte Esterase (Negative) Negative Urine Glucose (Negative) mg/dL Negative HPI General Mode of arrival: ambulatory . Date/Time Provider Initiated Documentation: 01/22/21 14:55 . Limitations to Documentation: no limitations . Information obtained by: patient . HPI Narrative: Patient is a 41-year-old female who presents to the ED with complaint of right flank pain with radiation to her right lower quadrant for the past 4 days. Patient describes the pain as intermittent, dull and aching radiating from her right flank around her right side and right lower quadrant. She denies any aggravating or alleviating factors. She states the pain is currently 4/10. She has taken Tums without relief. She denies any known injury. She admits to occasional nausea but denies any vomiting. She states she had a black bowel movement yesterday. She denies any bright red blood in her stool. She denies any known history of peptic ulcer. She states she is sexually active with one partner and does not use protection but denies any known exposure to STDs, vaginal discharge or genital lesions. She denies any new medications, recent antibiotics. Related Data Home Medications Medication Instructions Recorded Confirmed omeprazole 40 mg PO DAILY 05/26/20 01/22/21 famotidine 20 mg PO DAILY 01/22/21 01/22/21 methocarbamol 500 mg PO Q6H PRN #14 tab 01/22/21 ondansetron 4 mg PO TID PRN #6 tab 01/22/21 Previous Rx's Medication Instructions Recorded methocarbamol 500 mg PO Q6H PRN #14 tab 01/22/21 ondansetron 4 mg PO TID PRN #6 tab 01/22/21 Allergies Allergy/AdvReac Type Severity Reaction Status Date / Time doxycycline Allergy Unknown Skin Rash Unverified 01/22/21 15:03 General MERRICK: 3 Review of Systems All systems reviewed & are unremarkable except as noted in HPI and below Constitutional Constitutional: Reports as per HPI, Denies chills and Denies fever(s) Eyes Eyes: Denies blurry vision ENT Ears, Nose, Mouth, and Throat: Denies dizziness, Denies sore throat and Denies throat swelling Cardiovascular Cardiovascular: Denies chest pain and Denies dyspnea Respiratory Respiratory: Denies cough and Denies dyspnea Gastrointestinal Gastrointestinal: Reports abdominal pain, Denies diarrhea and Denies vomiting Genitourinary Genitourinary: Denies hematuria and Denies dysuria Musculoskeletal Musculoskeletal: Reports back pain and Denies numbness Integumentary/Breasts Skin/Breast: Denies lesions and Denies rash Neurologic Neurologic: Denies dizziness, Denies localized weakness and Denies numbness Allergic/Immunologic Allergic/Immunologic: Denies throat swelling PFSH Medical History Anxiety Chronic endometritis (12/02/16) Surgical History Craniotomy (~11/1984) benign meningioma removed. No residual deficits, no seizures GERD - unknown surgical procedure (~2010) Family History Mother No problems noted. Father , COPD No problems noted. Grandmother , renal failure No problems noted. Social History Smoking/Tobacco Use Status: Never Smoking risk assessment performed?: Yes Alcohol Intake: current Alcohol Intake frequency: holidays/special occasions only Drug use: Never Substance use type: does not use Do you feel safe at home: Yes Do you feel safe in your relationship?: Yes Female Reproductive History Menstrual control method: condoms History History 3 Para 2 Hx # Term Pregnancies Multiple births Hx # Pregnancies Ectopic pregnancies AB induced Hx Number of Living Children AB spontaneous 1 Exam Const General: cooperative, healthy appearing and no acute distress HENMT Head: normal to inspection Face and sinus: normal facial exam Eyes General: appearance normal, both eyes and all related structures EOM: EOM intact bilaterally Neck Neck: normal visual inspection and No submandibular swelling Lymphatic: no lymphadenopathy noted Chest Chest: normal inspection of the chest and no tenderness Resp Effort & Inspection: normal respiratory effort and able to speak in complete sentences Auscultation: clear to auscultation bilaterally Cardio Rate: regular rate Rhythm: regular rhythm GI Inspection: normal to inspection Palpation: soft, not firm, not rigid and nontender Auscultation: normal bowel sounds Back/Spine/Pelvis Back: no CVA tenderness Thoracic/Lumbar Spine: thoracic and lumbar spine normal to inspection Pelvis: no pain with anterior-posterior compression Back/spine/pelvis image: 1. Localized area of tenderness. No evidence of rash, cellulitis or trauma. Skin General skin exam: no rashes or lesions noted Neuro General: patient alert, patient awake and patient oriented x3 Cognition: normal cognition Speech: speech normal Motor: muscle tone normal throughout Sensory Exam: no sensory deficits noted Extrem General: normal to inspection, full ROM, capillary refill normal, no calf tenderness bilaterally and no edema Psych Appearance: grossly normal Mental Status: mental status grossly normal Speech and Movement: speech and movement normal Affect: normal affect
[2021-01-22 15:00] VITALS: BP 114/69; PULSE 76; TEMP 37.2; O2SAT 100
--- OUTSIDE RECORDS SUMMARY | 2021-01-22 15:01 | XMS_ITS ---
:1980 Author Care Team Providers Name Role Phone YVETTE WANDA BOWEN Primary Care Provider [phone] Allergies Code Code System Name Reaction Severity Status Onset 3640 RxNorm Doxycycline ? ? Active ? Medications Name Status Start Date Stop Date ? ? cetirizine 10 mg capsule Completed ? 020 Take by oral route. cimetidine 400 mg tablet Completed ? 020 Take 1 tablet twice a day by oral route. Lexapro 10 mg tablet Completed ? 03/29/2020 Take 1 tablet every day by oral route. omeprazole 10 mg capsule,delayed release Active ? Not available Take 2 capsules every day by oral route. omeprazole 40 mg capsule,delayed release Completed ? 11/14/2020 Take 1 capsule every day by oral route. Vitamin D Active ? Not available 1,000 mcg Xanax 0.5 mg tablet Completed ? 03/29/2020 Take 1 tablet 3 times a day by oral route. zolpidem 5 mg tablet Completed ? 05/01/2020 take 1-2 PO night of the sleep study Problems Name Status Onset Date Source ? Goiter Active 03/21/2020 ? Anxiety Active 03/21/2020 ? Anxiety Attack Unknown 03/21/2020 ? Gastroesophageal Reflux Disease Active 03/21/2020 ? Backache Active 03/21/2020 ? Fatigue Active 03/21/2020 ? Tinnitus of Left Ear Active 03/21/2020 ? Snoring Active 03/29/2020 ? Hypnagogic Hallucinations Active 04/30/2020 ? Obstructive Sleep Apnea Syndrome Active ? ? Procedures None recorded. Results Lab Results None recorded. Past Encounters 01/16/2021 Obstructive Sleep Apnea Syndrome Esperanza Gu NP: [address] [place] [address] [facility] [employer] [facility] [address] [phone], Ph. 11/14/2020 Obstructive Sleep Apnea Syndrome Esperanza Gu [employer]: [address] [place] [address] [facility] [employer] [facility] [address] [phone], Ph. 07/10/2020 Obstructive Sleep Apnea Syndrome Esperanza Gu [employer]: [address] [place] [phone], Ph. 05/01/2020 Obstructive Sleep Apnea Syndrome; Hypnag ogic Hallucinations Esperanza Gu [employer]: [address] [place] [phone], Ph. 03/29/2020 Snoring; Periodic Leg Movements of Sleep ; Hypnagogic Hallucinations Esperanza Gu [employer]: [address] [place] [phone], Ph. Social History Tobacco Smoking Status Never Smoker Vaccine List None recorded. Plan of Care Reminders Provider Appointments None ? ? recorded. Lab None ? ? recorded. Referral None ? ? recorded. Procedures None ? ? recorded. Surgeries None ? ? recorded. Imaging None ? ? recorded. Vitals 01/16/2021 08:30AM Office 30 Height Weight BMI 163.83 cm 68.04 kg 25.3 kg/m2 11/14/2020 08:00AM Office 30 Height Weight BMI 163.83 cm 68.04 kg 25.3 kg/m2 07/10/2020 02:00PM Office 30 Height Weight BMI 163.83 cm 68.04 kg 25.3 kg/m2 05/01/2020 10:45AM Office 30 Height 163.83 cm 03/29/2020 10:45AM New Patient 45 Height Weight BMI Blood Pressure 163.83 cm 70.31 kg 26.2 kg/m2 112/60 mm[Hg]
--- OUTSIDE RECORDS SUMMARY | 2021-01-22 15:01 | XMS_ITS | Encounter Summary ---
:1980 Author Care Team Providers Name Role Phone Lynn Hernadez [employer] Primary Care Provider [phone] Reason for Visit Telehealth - Video/Zoom Assessment and Plan 1. Obstructive sleep apnea syndr ome Borderline, mild obstructive s leep apnea. She has been using CPAP 5-15 cm. She has excellent compliance and reduction in AHI and she feels much better rested when using CPAP. She also has impr ovement in mental clarity and headaches. Continued use of CPAP is recommended. She now has found a mask that she is very happy with and she no longer is interested in pursuing an oral appliance. She is encouraged to keep up with the routine m aintenance of the machine and to clean and replace parts as indicated. I will see her back in one year. She is asked to call the clinic for any sleep related questions or concerns. I provided greater than 30 minutes in e care of this patient, more than half the time was spent in [id number] counseling. Discussion Note: None recorded.Patient educational handouts: No information available. Plan of Care Reminders Provider Appointments Return to on or around Eliceo Gu, Office 01/16/2022 [employer] Lab None ? ? recorded. Referral None ? ? recorded. Procedures None ? ? recorded. Surgeries None ? ? recorded. Imaging None ? ? recorded. Medications Name Start Date ? ? omeprazole 10 mg capsule,delayed release ? Take 2 capsules every day by oral route. Vitamin D ? 1,000 mcg Medications Administered None recorded. Vitals Height Weight BMI 5 ft 4.5 in 150 lbs 25.3 kg/m2 Results Lab Results None recorded. Allergies Code Code System Name Reaction Severity Onset 3640 RxNorm Doxycycline ? ? ? Problems Name Status Onset Date Source ? Goiter Active 03/21/2020 ? Anxiety Active 03/21/2020 ? Gastroesophageal Reflux Disease Active 03/21/2020 ? Backache Active 03/21/2020 ? Fatigue Active 03/21/2020 ? Tinnitus of Left Ear Active 03/21/2020 ? Snoring Active 03/29/2020 ? Hypnagogic Hallucinations Active 04/30/2020 ? Obstructive Sleep Apnea Syndrome Active ? ? Procedures None recorded. Vaccine List None recorded. Social History Tobacco Smoking Status Never Smoker Alcohol intake None Live alone or with others? with others Animal exposure? Y Notes: 2 cats Are you currently employed? Y Blind or serious difficulty seeing Y Not es: wears glasses Hard of hearing or deaf in one or both N ears? Caffeine intake None Drug Use N Functional Status Blind or serious Yes difficulty seeing? Past Encounters 01/16/2021 Obstructive Sleep Apnea Syndrome Esperanza Gu, [employer]: [address] [place] [phone], Ph. History of Present Illness Note: <p>Cristina Mayo has a Zoom visit for LAURY follow-up. She has given consent to have a telehealth visit. Patient is at home, provider is in the office.</p><p>
</p><p>Cristina was seen by me on 11/14/20. She has a medical history to include anxiety with panic, multinodular goiter, meningioma, GERD and seasonal allergies.</p><p>
</p><p>She noted symptoms snoring, fatigue, nocturia, neurocognitive decline, morning grogginess/confus ion, leg movement at night and symptoms that may be consistent with hypnagogic hallucinations.</p><p>
</p><p>Polysomnogram was completed on {{DATE 04/05/2020}} (BMI 26.6). Sleep efficiency was {{92# 80}}%, sleep onset 11.5 minutes, REM latency 87 minutes, REM sleep 24%, AHI {{0.9# NUMBER}}/hr, RDI {{7.2# NUMBER}}/hr, REM AHI {{0.5# NUMBER}}/hr, REM RDI {{12.4# NUMBER}}/hr, supine AHI {{1# NUMBER}}/hr, right lateral AHI N/A, left lateral AHI {{1# NUMBER}}/hr, sp02 kelly {{84# NUMBER}}%, {{4# NUMBER}} minutes were spent at a saturation <88%, arousal index {{24# NUMBER}}/hr, PLMi {{1.1# NUMBER}}/hr, PLM arousal index {{0.9# NUMBER}}/hr. EKG showed {{NSR*}}. No snoring heard. She took Ambien 5 mg for the study. Last visit she was using CPAP 5-15 cm with great compliance and reduction in AHI and feeling better rested but struggled to find a mask that she liked.She had tried a few different nasal pillows. She was going to try another one but was interested in trying an oral appliance.</p><p>
</p><p>Rosie tells me she did try a nasal mask (N20) and it is working really well, it does not bother her or move around at night. She finds the material comfortable and it is easy to apply. She is using CPAP every night. She sleeps from about 10 pm to 5:30-6 am most nights. She still feels much better rested and has significant improvement in her headaches. She also no longer feels foggy with CPAP use. </p><p>
</p><p>ESS today 09/02</p><p>
</p><p>COMPLIANCE DATA REVIEWED WITH PATIENT: {{10/17/20-01/14/21# DATES}}, Used {{89# 25 30}}/90 days, average use {{7# 5 6}} hours {{42# number}} minutes a night, mean pressure {{5.5# 8 9}}cm, 90 th percentile pressure {{6.5# 9 10}}cm, time in large air leak {{0# 5 10}} minutes, AHI {{2.7# 1 2}}/hour.</p>Review of Systems: ROS as noted in the HPI Review of Systems None recorded. Physical Exam ? Notes: <p>N/A</p>
--- OUTSIDE RECORDS SUMMARY | 2021-01-22 15:01 | XMS_ITS | Encounter Summary ---
:1980 Author Care Team Providers Name Role Phone Lynn Hernadez GAME ROOM ATTENDANT Primary Care Provider [phone] Reason for Visit Telehealth visit - Patient at home Assessment and Plan Assessment Note This visit was performed virtually using synchronous audio-visual connection via Zoom. As such, the physical examination is necessarily limited. The risks and benefits of the use of this alternative platform were discussed with the parent and verbal consent was obtained. My assessme nt and plans are based on such examination. Further evaluation, including in-person examination, may be needed depending on the response to management or today's recomm endation. 1. Obstructive sleep apnea syndr ome Borderline, mild obstructive s leep apnea. She has been using CPAP 5-15 cm. She has excellent compliance and reduction in AHI and she feels much better rested when using CPAP. Continued use is recommended. Unfortunately she does not like her current mask or another one she initially tried. I discussed some different options with her and sent in an order for a new mask fit to [facility]. She was cu rious about changing over to an oral gilmer liance but I discouraged that at this time given she has had such good results with her CPAP and she may not tolerate an appliance or get the same results. She is willing to try another mask and we will touch base in a few months. If she continues to struggle with her mask may refer for an oral appliance at that time. She is asked to call the clinic for any sleep related questions or concerns. I provided greater than 30 minutes in e care of this patient, more than half the time was spent in [id number] counseling. ? CPAP supplies Discussion Note: None recorded.Patient educational handouts: No information available. Plan of Care Reminders Provider Appointments Return to on or around Eliceo Gu, Office 01/16/2022 GAME ROOM ATTENDANT Lab None ? ? recorded. Referral None [...] or serious Yes difficulty seeing? Past Encounters 11/14/2020 Obstructive Sleep Apnea Syndrome Esperanza Gu, GAME ROOM ATTENDANT: [address] [place] [phone], Ph. History of Present Illness Note: <p>Cristina Litchfield has a Zoom visit for LAURY follow-up. She has given consent to have a telehealth visit. Patient is at home, provider is in the office.</p><p>
</p><p>Cristina was seen by me on 07/10/20. She has a medical history to include anxiety with panic, mu ltinodular goiter, meningioma, GERD and seasonal allergies.</p><p>
</p><p>She noted symptoms snoring, fatigue, nocturia, neurocognitive decline, morning grogginess/confu marbin, leg movement at night and symptoms that [...] arousal index {{0.9# NUMBER}}/hr. EKG showed {{NSR*}}. Nosnoring heard. She took Ambien 5 mg for the study. Last visit she was using CPAP 5-15 cm with great compliance and reduction in AHI and.</p><p>she no longer woke up fuzzy headed.</p> <p>
</p><p>She is using a Dreamwear nasal mask and does not like that thetube is on top of her head. She uses CPAP every night. When she missed one night last week she felt much more tired the following day. She tried a different nasal pillow and did not like the prongs in her nose. She is sleeping from about 10 pm until 6 am. Her sleep is sound most of the time. She is not snoring with CPAP that she is aware of. </p><p>
</p><p>ESS today </p><p>
</p><p>COMPLIANCE REVIEW: {{10/14/20- 11/12/20# DATES}}, Used {{29# 25 30}}/30 days, average use {{7# 5 6}} hours {{41# number}} minutes a night, mean pressure{{5.5# 8 9}}cm, 90 th percentile pressure {{6.5# 9 10}}cm, time in large air leak {{0# 5 10}} minutes, AHI {{2.2# 1 2}}/hour.
</p>Review of Systems: ROS as noted in the HPI Review of Systems None recorded. Physical Exam ? Notes: <p>N/A</p>
--- NOTE | 2021-01-22 15:15 | DI.CT_ITS ---
Exam(s) CT RENAL COLIC WO EXAM: CT RENAL COLIC WO CLINICAL HISTORY: R flank pain, r/i kidney stone, pyelo. TECHNIQUE: Imaging Protocol: Axial computed tomography images with coronal and sagittal reformatted images were created and reviewed CONTRAST MATERIAL: Intravenous: none Oral: None COMPARISON: CT CT ABDOMEN PELVIS W from 05/26/2020 FINDINGS: VISUALIZED LUNG BASES: No nodules nor pleural effusions evident. ABDOMEN: There is no ascites. Calcification or clips noted just anterior to the GE junction, previously prese nt. LIVER: There are no obvious focal hepatic lesions evident of this noninfused study. GALLBLADDER/BILIARY: No obvious gallbladder pathology. CBD is not dilated. PANCREAS: No evidence of pancreatic mass nor dilatation of the pancreatic duct. SPLEEN: Calcified granuloma noted in the medial spleen. Spleen size is normal. ADRENALS: There are no significant adrenal masses. KIDNEYS:No cysts evident. No solid renal masses. There is a small 2-3 millimeter nonobstructive calc ulus in medial cortex of the left kidney, unchanged. No other focal renal findings. No hydronephros is. Urinary bladder is not distended.. ABDOMINAL AORTA: Abdominal aorta is not enlarged. LYMPH NODES: There is no retroperitoneal nor paraaortic adenopathy. ABDOMINAL WALL: No evidence of significant anterior abdominal wall hernia. GI: There is no evidence of bowel obstruction, free air, nor abscess. PELVIS: LYMPH NODES: There is no intrapelvic nor inguinal adenopathy. GI: There are multiple calculi seen in the lumen of the appendix. Appendix diameter is upper normal. There is no obvious periappendiceal streaking. There is small amount of free fluid in the right si de of the cul-de-sac. URINARY BLADDER: No calculi nor obvious masses evident REPRODUCTIVE: Uterus size upper normal. Both ovaries its exhibit upper normal size and contain multi ple small follicular cysts. OSSEOUS: No significant osseous lesions. Advanced disc space narrowing L5-S1 and vacuum phenomenon seen within this diminished disc space. No listhesis. No pars defects. IMPRESSION: 1. There is a solitary 3 millimeter nonobstructive calculus in the left kidney. No other significant focal renal findings. 2. Multiple appendicular lith sys noted. Although there is no obvious periappendiceal streaking, the re is a small amount of free fluid in the right-side of the cul-de-sac. Although this may be female physiologic-type, correlation the clinical signs of acute appendicitis is recommended. Appropriate f ollow-up recommended. 3. RADIATION DOSE DELIVERED: 858.49mGy.cm Total DLP DATA REPOSITORY: All CT scans at this facility are submitted to the National Radiology Data Registry (NRDR) Dose Index Registry (DIR) with the [employer] (ACR). RADIATION OPTIMIZATION: All CT scans at this facility use at least one of these dose optimization te chniques: automated exposure control; mA and/or kV adjustment per patient size (includes targeted exa ms where dose is matched to clinical indication); or iterative reconstruction.
[2021-01-22 15:17] LABS: Bilirubin Negative (Negative); Blood Negative (Negative); Clarity Clear (Clear); Glucose Negative (Negative); Ketones Negative (Negative); Leukocyte Esterase Negative (Negative); Nitrite Negative (Negative); Specific Gravity <= 1.005 (1.005-1.025); Urobilinogen 0.2 EU/dL (Up TO 0.2); pH 5.5 (5-8)
[2021-01-22 15:43] LABS: Abs Immature Grans 0.01 10^3/uL (0.0-0.06); Absolute Basophil Count 0.03 10^3/uL (0.0-0.2); Absolute Eosinophil Count 0.05 10^3/uL (0.0-0.7); Absolute Lymphocyte Count 1.72 10^3/uL (1.2-3.4); Absolute Monocyte Count 0.54 10^3/uL (0.1-0.8); Absolute Neutrophil Count 3.59 10^3/uL (1.2-6.7); Basophils % 0.5; Eosinophils % 0.8; HCT 37.5 % (36.0-46.0); Immature Grans % 0.2; MCH 28.8 pg (27.0-33.0); MCV 90.1 fL (80-95); MPV 10.3 fL (8.0-11.0); Monocytes % 9.1; Neutrophils % 60.4; Nucleated RBC 0 %; Platelet Count 274 10^3/uL (130-400); RBC 4.16 10^6/uL (3.93-5.22); RDW 12.1 % (11.7-14.6); RDW-SD 40.3 fL; WBC 5.94 10^3/uL (4.4-10.8)
[2021-01-22] MEDS: Normal Saline 1,000 ML 1000 ML IV (15:49)
[2021-01-22] MEDS: Ketorolac 30 MG/ML VIAL IVP (15:49)
[2021-01-22] MEDS: Ondansetron 4 MG/2 ML VIAL IVP (15:50)
[2021-01-22 15:56] LABS: ALT 24 U/L (14-59); AST 20 U/L (15-37); Alkaline Phosphatase 59 U/L (46-116); Anion Gap 7.2 mmol/L (3-11); BUN 16 mg/dL (7-18); Bilirubin, Total 0.3 mg/dL (0.2-1.0); CO2 28.8 mmol/L (21.0-32.0); Calcium 8.7 mg/dL (8.5-10.1); Chloride 106 mmol/L (98-107); Glucose 97 mg/dL (74-106); Lipase 180 U/L (73-393); Potassium 3.5 mmol/L (3.5-5.1); Sodium 142 mmol/L (136-145); Total Protein 7.3 g/dL (6.4-8.2)
--- NOTE | 2021-01-22 18:18 | DI.VRAD_ITS ---
PROCEDURE INFORMATION: Exam: CT Abdomen And Pelvis Without Contrast Exam date and time: 01/22/2021 15:24 Age: 41 years old Clinical indication: Other: R flank pain, r/i kidney stone, pyelo, R/O appendix, R/O gallstones TECHNIQUE: Imaging protocol: Computed tomography of the abdomen and pelvis without contrast. COMPARISON: CT ABDOMEN PELVIS W 05/26/2020 20:37 FINDINGS: Liver: No hepatic masses on noncontrast imaging. Gallbladder and bile ducts: No calcified stones. No ductal dilation. Pancreas: No ductal dilation. No masses. Spleen: Small splenic calcifications compatible with benign granulomata. No splenomegaly. Adrenal glands: No mass. Kidneys and ureters: Nonobstructive subcentimeter left nephrolithiasis is similar to prior. No right nephrolithiasis. No right hydronephrosis. Stomach and bowel: Surgical clips again seen adjacent to the proximal stomach. The gastric wall is difficult to assess given decompression. No gastric dilation. Appendix: Multiple small stones are present in the appendiceal lumen however there is no appendiceal dilation or periappendiceal inflammatory change. No evidence of appendicitis. Intraperitoneal space: No free air. No significant fluid collection. Vasculature: No abdominal aortic aneurysm. Lymph nodes: No significantly enlarged lymph nodes. Urinary bladder: Unremarkable as visualized. Reproductive: Unremarkable as visualized. Bones/joints: Distal lumbar spondylosis. No acute fracture or subluxation. Soft tissues: No suspicious lesions. IMPRESSION: 1. No acute findings. 2. Incidental findings as described. Dictated and Authenticated by: Betzy Valdes MD. Ordering:DEYSI Cardenas MD
[2021-01-22 18:52] VITALS: PULSE 86; RESP 14; O2SAT 98
== END 2021-01-22 18:59 | disposition home or self-care (01) ==
PROVIDERS: Emergency Provider Physician Assistant; PCP Nurse Practitioner Family
DX: M54.5 Low back pain (principal)
CPT/HCPCS: 80053; 81025; 83690; 96361; 96374; 96375; 99284; 74176; 81003; 85025; 99283; J1885; J2405

== ENCOUNTER 2021-03-07 09:58 | Outpatient (REF) | payer MEDICAID, SELFPAY ==
[2021-03-07 15:07] LABS: Abs Immature Grans 0.01 10^3/uL (0.0-0.06); Absolute Basophil Count 0.03 10^3/uL (0.0-0.2); Absolute Eosinophil Count 0.12 10^3/uL (0.0-0.7); Absolute Lymphocyte Count 1.53 10^3/uL (1.2-3.4); Absolute Monocyte Count 0.66 10^3/uL (0.1-0.8); Absolute Neutrophil Count 3.15 10^3/uL (1.2-6.7); Basophils % 0.5; Eosinophils % 2.2; HCT 37.3 % (36.0-46.0); HGB 11.7 g/dL (11.2-15.7); Immature Grans % 0.2; Lymphocytes % 27.8; MCH 28.5 pg (27.0-33.0); MCHC 31.4 % (32.0-36.0); MPV 12.3 fL (8.0-11.0); Neutrophils % 57.3; Nucleated RBC 0 %; Platelet Count 258 10^3/uL (130-400); RDW 12.9 % (11.7-14.6); RDW-SD 42.9 fL
[2021-03-07 15:41] LABS: ALT 23 U/L (14-59); AST 15 U/L (15-37); Albumin 3.6 g/dL (3.4-5.0); Alkaline Phosphatase 43 U/L (46-116); Anion Gap 6.8 mmol/L (3-11); BUN 14 mg/dL (7-18); Bilirubin, Total 0.3 mg/dL (0.2-1.0); CO2 28.2 mmol/L (21.0-32.0); CREATININE 1.1 mg/dL (0.55-1.02); Calcium 8.7 mg/dL (8.5-10.1); Chloride 110 mmol/L (98-107); Estimated GFR 55.01 (mL/min/1.73m2); Glucose 80 mg/dL (74-106); Magnesium 1.9 mg/dL (1.8-2.4); Potassium 4.5 mmol/L (3.5-5.1); Sodium 145 mmol/L (136-145); TSH (W/Ref FT4) 1.28 uIU/mL (0.36-3.74); Total Protein 6.7 g/dL (6.4-8.2)
== END 2021-03-07 09:59 | disposition home or self-care (01) ==
LOC: NCHCN 09:58
PROVIDERS: PCP Nurse Practitioner Family; Visit Provider Nurse Practitioner Family
DX: R19.7 Diarrhea, unspecified (principal); R42 Dizziness and giddiness; R82.998 Other abnormal findings in urine
CPT/HCPCS: 80053; 83735; 84443; 85025; 87086

== ENCOUNTER 2021-03-08 02:44 | Emergency (ER) | payer MEDICAID, SELFPAY ==
[2021-03-08] VITALS (10 sets, daily range): BP systolic 107–124; BP diastolic 56–80; PULSE 61–104; RESP 0–23; TEMP 36.6; O2SAT 98–100
--- NOTE | 2021-03-08 02:45 | DI.RAD_ITS ---
Exam(s) XR CHEST 2V PA LATERAL EXAM: XR CHEST 2V PA LATERAL CLINICAL HISTORY: cough. TECHNIQUE: 2D digital imaging was performed. COMPARISON: CR ABD FLAT UPRIGHT PA CHEST from 12/27/2010 FINDINGS: Heart size is normal. The mediastinum is not widened. Lungs are clear. No infiltrates nor pleural effusions. IMPRESSION: No acute pulmonary findings. DATA REPOSITORY: RADIATION DOSE DELIVERED:
--- NOTE | 2021-03-08 02:45 | RT.EKG_ITS ---
APPROVED REPORT Exam: Resting ECG Reason for Exam: rapid heart rate Patient Location: E HR:71 bpm ECG Measurements Heart Rate 71 AXIS OR 134 P 20 QRSd 79 QRS 19 QT 408 T -2 QTc 444 Conclusion Sinus rhythm...normal P axis, V-rate 60- 99 Low voltage, extremity and precordial leads...extremity<0.5mV, precordial<1.0mV Physician: Rate 71, sinus rhythm, no significant ST elevation or depression. No evidence of STEMI. Patient does have a small Q waves in lead III and an inverted T wave in lead III, however prior EKG o n 09/11/2019 demonstrates identical findings. No evidence of acute change. No other abnormalities.
--- NOTE | 2021-03-08 03:06 | ED.GENADUL_ITS ---
Discharge Plan Disposition Patient Disposition: HOME Condition: Good Discharge Details Clinical Impression: Palpitation, Dehydration Primary Care Provider: Lynn Hernadez ED Provider: Angel Tovar Home Meds and New Rx's Prescriptions: Continued omeprazole 40 mg Capsule,Delayed Release(Dr/Ec) 40 mg PO DAILY RF: 0 famotidine 20 mg Tablet 20 mg PO DAILY RF: 0 Discharge Instructions Instructions: Heart Palpitations (ED), Dehydration (ED) Additional Instructions: At this time your work-up is very reassuring. There is no evidence of electrolyte abnormality, heart work-up is unchanged and stable with no signs of a heart attack. Please make sure you are drinking plenty of water, at least 10 to 12 cups a day. If you notice any worsening of your symptoms, or any new symptoms such as vomiting, diarrhea, fever, chills, shortness of breath, chest pain, numbness, weakness, or fainting , please return immediately to the emergency department for reevaluation. Please follow up with your primary care provider as soon as possible for reassessment and reevaluation. As always, it was a pleasure participating in your medical care today. Additionally, we we will schedule an outpatient Holter monitor for you which will you will need to wear for 48 hours to evaluate for any heart rhythm abnormality. The respiratory therapy office will contact you for an appointment time. Once this is completed please follow-up closely with your primary care provider for reassessment of these results. Referrals: Lynn Hernadez [Primary Care Provider] - Medical Decision Making This is a 41-year-old female with a past medical history of GERD, chronic endometritis, anxiety, who presents today for episode of an elevated heart rate. Patient states that this evening at about midnight from bed because she felt hot, after being awake for a few minutes she felt like her heart rate is racing. This lasted a few minutes and improved when she began speaking with someone on the phone on 911. At the time EMS arrived her symptoms were gone and she felt back to normal. She denies any chest pain, pleuritic chest pain, syncope, shortness of breath, nausea, vomiting. She denies any abdominal pain. She denies any tearing or ripping sensation. She does note that she has stopped using her CPAP recently, she is also currently on Bactrim for 1 day so far for treatment of a urinary tract infection. She denies any dysuria or frequency at this time. She also does admit to a cough for the last few weeks, and was supposed to have a chest x-ray this week. She states that the cough continues to be very mild and is only present in the morning when she wakes up, and is not throughout the day. She denies any recent exertional chest pain, or any other symptoms of a racing heart throughout the day. No other complaints at this time. No other modifying factors. Physical exam demonstrates dry mucous membranes, but otherwise notably unremarkable vital signs. No calf tenderness, clear lung sounds, no abdominal tenderness. Uncertain as to what caused the patient's palpitations, but dehydration, component of her sleep apnea, certainly highest on the differential. Patient is PERC and Wells negative. Symptoms appear inconsistent with PE. We will gently rehydrate, evaluate for electrolyte abnormality, get a screening EKG, monitor closely and reassess. 5 AM Laboratory work-up is returned, no significant abnormalities. Renal function stable, troponin normal. EKG unremarkable/unchanged. Thyroid function good. Patient has been rehydrated. Repeat neurologic exam is normal. I do feel that at this time the patient is safe for discharge. No signs of acute life- threatening etiology at this time. We will set up outpatient Holter monitor for further assessment, but at this time the patient's exam shows no signs of life- threatening dysrhythmia or other significant abnormality requiring admission. Discussed the case with the patient's . Discussed red flags which to return. I have extensively reviewed the treatment plan and discharge i nstructions with the patient. I have addressed all patient concerns at this time. The patient was made aware of what symptoms to monitor for that would warrant a return to the emergency department. Discussed the plan with the patient, they demonstrate verbal understanding and agreement with our assessment and plan at this time. The documentation in this chart was dictated using [employer] dictation software. Please excuse any dictation errors. EKG 3: 01 Rate 71, sinus rhythm, no significant ST elevation or depression. No evidence of STEMI. Patient does have a small Q waves in lead III and an inverted T wave in lead III, however prior EKG on 09/11/2019 demonstrates identical findings. No evidence of acute change. No other abnormalities. FINDINGS: Lungs: Unremarkable. No consolidation. Pleural spaces: Unremarkable. No pleural effusion. No pneumothorax. Heart/Mediastinum: Unremarkable. No cardiomegaly. Bones/joints: Unremarkable. IMPRESSION: No acute findings. Thank you for allowing us to participate in the care of your patient. Dictated and Authenticated by: Brandon Cano MD 03/08/2021 5:04 AM Eastern Time ([place] & [place]) HPI General Date/Time Provider Initiated Documentation: 03/08/21 02:52 . HPI Narrative: This is a 41-year-old female with a past medical history of GERD, chronic endometritis, anxiety, who presents today for episode of an elevated heart rate. Patient states that this evening at about midnight from bed because she felt hot, after being awake for a few minutes she felt like her heart rate is racing. This lasted a few minutes and improved when she began speaking with someone on the phone on 911. At the time EMS arrived her symptoms were gone and she felt back to normal. She denies any chest pain, pleuritic chest pain, syncope, shortness of breath, nausea, vomiting. She denies any abdominal pain. She denies any tearing or ripping sensation. She does note that she has stopped using her CPAP recently, she is also currently on Bactrim for 1 day so far for treatment of a urinary tract infection. She denies any dysuria or frequency at this time. She also does admit to a cough for the last few weeks, and was supposed to have a chest x-ray this week. She states that the cough continues to be very mild and is only present in the morning when she wakes up, and is not throughout the day. She denies any recent exertional chest pain, or any other symptoms of a racing heart throughout the day. No other complaints at this time. No other modifying factors. Related Data Home Medications Medication Instructions Recorded Confirmed omeprazole 40 mg PO DAILY 05/26/20 03/08/21 famotidine 20 mg PO DAILY 01/22/21 03/08/21 Allergies Allergy/AdvReac Type Severity Reaction Status Date / Time doxycycline Allergy Unknown Skin Rash Unverified 03/08/21 02:51 General Stated Complaint: Palpitatns MERRICK: 3 Review of Systems All systems reviewed & are unremarkable except as noted in HPI and below [facility] Medical History Anxiety Chronic endometritis (12/02/16) Surgical History Craniotomy (~11/1984) benign meningioma removed. No residual deficits, no seizures GERD - unknown surgical procedure (~2010) Family History Mother No problems noted. Father , COPD No problems noted. Grandmother , renal failure No problems noted. Social History Smoking/Tobacco Use Status: Never Smoking risk assessment performed?: Yes Alcohol Intake: current Alcohol Intake frequency: holidays/special occasions only Drug use: Never Substance use type: does not use Do you feel safe at home: Yes Do you feel safe in your relationship?: Yes Female Reproductive History Menstrual control method: condoms History History 3 Para 2 Hx # Term Pregnancies Multiple births Hx # Pregnancies Ectopic pregnancies AB induced Hx Number of Living Children AB spontaneous 1 Exam Narrative Exam Narrative: 1.Const: Well-nourished, Well-developed, appearing stated age 2.Eyes: PERRL, no conjunctival injection, and symmetrical lids. 3.ENT: Atraumatic external nose and ears. Notably dry MM. Neck: Symmetric, trachea midline, No thyromegaly. 4.CVS: +S1/S2, No murmurs or gallops. Peripheral pulses 2+ and equal in all extremities. Brisk capillary refill in all extremities. 5.RESP: Unlabored respiratory effort. Clear to auscultation bilaterally. No wheezes rales or rhonchi 6.GI: Soft, Nontender/Nondistended, No hepatosplenomegaly. No guarding or rebound. 7.MSK: Normocephalic/Atraumatic, Extremities w/o deformity or ttp No cyanosis or clubbing, Normal movement of all extremities, no calf tenderness 8.Skin: Warm, Dry. No rashes or lesions. 9.Neuro: code clerk II-XII grossly intact. Sensation grossly intact, no focal neurologic deficits. 10.Psych: (AAO) x3. Appropriate mood and affect Course Vital Signs Vital signs: Vital Signs Temperature 36.6 C 03/08/21 02:45 Pulse 72 03/08/21 02:45 Respiratory Rate 16 03/08/21 02:45 Blood Pressure 119/80 03/08/21 02:45 Pulse Oximetry 100 03/08/21 02:45 Temperature 36.6 C 03/08/21 02:45 Pulse 72 03/08/21 02:45 Respiratory Rate 16 03/08/21 02:45 Blood Pressure 119/80 03/08/21 02:45 Blood Pressure Position Sitting 03/08/21 02:45 Pulse Oximetry 100 03/08/21 02:45 Oxygen Delivery Method Room Air 03/08/21 02:45 Oxygen Flow Rate 0 03/08/21 02:45 Pain Level 0 03/08/21 02:45
[2021-03-08 03:26] LABS: Abs Immature Grans 0.06 10^3/uL (0.0-0.06); Absolute Basophil Count 0.02 10^3/uL (0.0-0.2); Absolute Eosinophil Count 0.07 10^3/uL (0.0-0.7); Absolute Lymphocyte Count 1.77 10^3/uL (1.2-3.4); Absolute Monocyte Count 0.69 10^3/uL (0.1-0.8); Absolute Neutrophil Count 3.89 10^3/uL (1.2-6.7); Basophils % 0.3; Eosinophils % 1.1; HCT 38.2 % (36.0-46.0); HGB 12.3 g/dL (11.2-15.7); Immature Grans % 0.9; Lymphocytes % 27.2; MCH 28.9 pg (27.0-33.0); MCHC 32.2 % (32.0-36.0); MCV 89.7 fL (80-95); Monocytes % 10.6; Neutrophils % 59.9; Nucleated RBC 0 %; Platelet Count 248 10^3/uL (130-400); RBC 4.26 10^6/uL (3.93-5.22); RDW 12.7 % (11.7-14.6); RDW-SD 41.7 fL
[2021-03-08] MEDS: Normal Saline 1,000 ML 1000 ML IV (03:26)
[2021-03-08 03:53] LABS: ALT 24 U/L (14-59); AST 20 U/L (15-37); Albumin 3.8 g/dL (3.4-5.0); Alkaline Phosphatase 39 U/L (46-116); BUN 11 mg/dL (7-18); Bilirubin, Total 0.4 mg/dL (0.2-1.0); CREATININE 1.1 mg/dL (0.55-1.02); Calcium 8.7 mg/dL (8.5-10.1); Chloride 109 mmol/L (98-107); Estimated GFR 55.01 (mL/min/1.73m2); Glucose 101 mg/dL (74-106); Potassium 3.8 mmol/L (3.5-5.1); Sodium 143 mmol/L (136-145); TSH (W/Ref FT4) 2.52 uIU/mL (0.36-3.74); Total Protein 7.3 g/dL (6.4-8.2)
[2021-03-08 03:54] LABS: Troponin I < 0.05 ng/mL (<0.06)
--- NOTE | 2021-03-08 04:07 | NUR.NOTE ---
Requisition for 48 hour holter monitor faxed to [phone].Nursing Note:
--- NOTE | 2021-03-08 04:36 | NUR.NOTE ---
Requisition for 48 hour holter monitor faxed to [phone].Nursing Note:
--- NOTE | 2021-03-08 05:05 | DI.VRAD_ITS ---
PROCEDURE INFORMATION: Exam: XR Chest Exam date and time: 03/08/2021 2:53 AM Age: 41 years old Clinical indication: Other: Cough TECHNIQUE: Imaging protocol: XR of the chest. Views: 2 views. COMPARISON: CT RENAL COLIC WO 01/22/2021 5:20 PM FINDINGS: Lungs: Unremarkable. No consolidation. Pleural spaces: Unremarkable. No pleural effusion. No pneumothorax. Heart/Mediastinum: Unremarkable. No cardiomegaly. Bones/joints: Unremarkable. IMPRESSION: No acute findings. Dictated and Authenticated by: Brandon Cano MD. Ordering:BRIGHT Ortiz MD
== END 2021-03-08 05:11 | disposition home or self-care (01) ==
LOC: ER 04:16
PROVIDERS: Emergency Provider Student in an Organized Health Care Education/Training Program; PCP Nurse Practitioner Family
DX: R00.2 Palpitations (principal); E86.0 Dehydration
CPT/HCPCS: 36415; 80053; 81025; 93005; 96360; 99285; 71046; 84443; 84484; 85025; 93010

== ENCOUNTER 2021-03-11 05:12 | Emergency (ER) | payer MEDICAID, SELFPAY ==
[2021-03-11] VITALS (21 sets, daily range): BP systolic 98–117; BP diastolic 48–60; PULSE 54–84; RESP 13–21; TEMP 36.9; O2SAT 100
--- NOTE | 2021-03-11 05:00 | RT.EKG_ITS ---
APPROVED REPORT Exam: Resting ECG Reason for Exam: palpitations Patient Location: E HR:79 bpm ECG Measurements Heart Rate 79 AXIS WV 134 P 31 QRSd 68 QRS -6 QT 393 T -9 QTc 451 Conclusion Sinus rhythm...normal P axis, V-rate 60- 99 Physician: Physician: Rate 79, sinus rhythm, no significant ST elevation or depression. No evidence of STEMI.No evidence of brugada, or WPW. Patient does have a small Q waves in lead III and an invert ed T wave in lead III, however prior EKG on 03/08/21 and 09/11/2019 demonstrates identical findings.
--- NOTE | 2021-03-11 05:30 | HOLTER_ITS ---
APPROVED REPORT Conclusion There is a 48-hour monitor ordered for indication of palpitations. The patient was in normal sinus rhythm for the majority of the recording with an average heart rate o f 63 bpm (45-159 bpm) There were 4 episodes of supraventricular tachycardia with the longest lasting 8 beats. There were r are PACs. There were no episodes of ventricular tachycardia and rare PVCs. There were no episodes of atrial fibrillation, no pauses greater than 3 seconds and no evidence of hi gh degree heart block. There were 4 patient recorded events associated with lightheadedness and heart racing. None of these correlated with an arrhythmia.
--- NOTE | 2021-03-11 05:34 | ED.GENADUL_ITS ---
Discharge Plan Disposition Patient Disposition: HOME Condition: Good Discharge Details Clinical Impression: Heart palpitations Primary Care Provider: Lynn Hernadez ED Provider: Angel Tovar Home Meds and New Rx's Prescriptions: Continued omeprazole 40 mg Capsule,Delayed Release(Dr/Ec) 40 mg PO DAILY RF: 0 famotidine 20 mg Tablet 20 mg PO DAILY RF: 0 Discharge Instructions Instructions: Heart Palpitations (ED), Hypokalemia (ED) Additional Instructions: The Holter monitor has been placed. Please keep this on for the next 48 hours. Please reviewed the findings with your primary care provider. Please drink plenty of fluids, avoid caffeine, and eat a diet high in potassium. If you notice any worsening of your symptoms, or any new symptoms such as vomiting, diarrhea, fever, chills, shortness of breath, chest pain, numbness, weakness, or fainting , please return immediately to the emergency department for reevaluation. Please follow up with your primary care provider as soon as possible for reassessment and reevaluation. As always, it was a pleasure participating in your medical care today. Referrals: Lynn Hernadez [Primary Care Provider] - Medical Decision Making 41-year-old female with past medical history of chronic endometritis, anxiety, previous craniotomy, GERD, presents today for evaluation of palpitations. She is seen and assessed 2 days ago, at that time she woke up at midnight had an episode of palpitations, they resolved shortly thereafter, she came to the ER via EMS. The work-up at that time was notably unremarkable, she was scheduled for an outpatient Holter monitor which she was supposed to receive a call for today. She is currently on Bactrim for a urinary tract infection and just finished her last dose today. This afternoon the patient had a repeat episode of her palpitations, heart rate went up into the 130s per her apple watch. And then this evening at about 4 AM the patient's heart rate again increased it went up to 170, and this lasted for about a minute total and then it returned to a normal rate on its own. Size for mild burning sensation in her chest and stomach area she is due to complete. She denies any other new medications, illicit drug use or other modifying factors. No other complaints at this time. No family history of sudden . No personal cardiac history previously. No other complaints at this time. Physical exam is unremarkable. Mucous membranes are slightly dry appearing. Heart rate normal, blood pressure normal. Pulses equal and symmetric. No other abnormalities on exam. Suspect that the patient is having episodes intermittently of SVT. EKG at this time is notably unremarkable. Will repeat cardiac work-up, evaluate for electrolyte abnormality and continue to monitor. We will keep the patient here in the ED until a Holter monitor can be placed t his morning. Of note the patient does state that she missed one of her control doses on , and is now having a very small amount of vaginal bleeding. She denies any significant pain otherwise. No other complaints at this time. 6:28 AM Laboratory work-up is returned, relatively unremarkable. Potassium slightly low at 3.2, labs otherwise stable. Troponin normal, urinalysis negative for infection. She does have some RBCs but she does have a small amount of vaginal discharge right now from missing her oral contraceptive pill. Patient continues to feel stable and well at this time. Holter monitor will be placed later this morning, patient will be stable for discharge after that with close follow-up with PCP. Discussed red flags which to return. I have extensively reviewed the treatment plan and discharge instructions with the patient and their family. I have addressed all patient concerns at this time. The patient and family was made aware of what symptoms to monitor for that would warrant a return to the emergency department. Discussed the plan with the patient and family, they demonstrate verbal understanding and agreement with our assessment and plan at this time. The documentation in this chart was dictated using [employer] dictation software. Please excuse any dictation errors. EKG: Rate 79, sinus rhythm, no significant ST elevation or depression. No evidence of STEMI.No evidence of brugada, or WPW. Patient does have a small Q waves in lead III and an inverted T wave in lead III, however prior EKG on 03/08/21 and 09/11/2019 demonstrates identical findings. HPI General Date/Time Provider Initiated Documentation: 03/11/21 05:14 . HPI Narrative: 41-year-old female with past medical history of chronic endometritis, anxiety, previous craniotomy, GERD, presents today for evaluation of palpitations. She is seen and assessed 2 days ago, at that time she woke up at midnight had an episode of palpitations, they resolved shortly thereafter, she came to the ER via EMS. The work-up at that time was notably unremarkable, she was scheduled for an outpatient Holter monitor which she was supposed to receive a call for today. She is currently on Bactrim for a urinary tract infection and just finished her last dose today. This afternoon the patient had a repeat episode of her palpitations, heart rate went up into the 130s per her apple watch. And then this evening at about 4 AM the patient's heart rate again increased it went up to 170, and this lasted for about a minute total and then it returned to a normal rate on its own. Size for mild burning sensation in her chest and stomach area she is due to complete. She denies any other new medications, illicit drug use or other modifying factors. No other complaints at this time. No family history of sudden . No personal cardiac history previously. No other complaints at this time. Related Data Home Medications Medication Instructions Recorded Confirmed omeprazole 40 mg PO DAILY 05/26/20 03/11/21 famotidine 20 mg PO DAILY 01/22/21 03/11/21 Allergies Allergy/AdvReac Type Severity Reaction Status Date / Time doxycycline Allergy Unknown Skin Rash Unverified 03/11/21 05:42 General MERRICK: 3 Review of Systems All systems reviewed & are unremarkable except as noted in HPI and below PFSH Medical History Anxiety Chronic endometritis (12/02/16) Surgical History Craniotomy (~11/1984) benign meningioma removed. No residual deficits, no seizures GERD - unknown surgical procedure (~2010) Family History Mother No problems noted. Father , COPD No problems noted. Grandmother , renal failure No problems noted. Social History Smoking/Tobacco Use Status: Never Smoking risk assessment performed?: Yes Alcohol Intake: current Alcohol Intake frequency: holidays/special occasions only Drug use: Never Substance use type: does not use Do you feel safe at home: Yes Do you feel safe in your relationship?: Yes Female Reproductive History Menstrual control method: condoms History History 3 Para 2 Hx # Term Pregnancies Multiple births Hx # Pregnancies Ectopic pregnancies AB induced Hx Number of Living Children AB spontaneous 1 Exam Narrative Exam Narrative: 1.Const: Well-nourished, Well-developed, appearing stated age 2.Eyes: PERRL, no conjunctival injection, and symmetrical lids. 3.ENT: Atraumatic external nose and ears. dry MM. Neck: Symmetric, trachea midline, No thyromegaly. 4.CVS: +S1/S2, No murmurs or gallops. Peripheral pulses 2+ and equal in all extremities. Brisk capillary refill in all extremities. 5.RESP: Unlabored respiratory effort. Clear to auscultation bilaterally. No wheezes rales or rhonchi 6.GI: Soft, Nontender/Nondistended, No hepatosplenomegaly. No guarding or rebound. 7.MSK: Normocephalic/Atraumatic, Extremities w/o deformity or ttp No cyanosis or clubbing, Normal movement of all extremities 8.Skin: Warm, Dry. No rashes or lesions. 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 Sensation grossly intact, no focal neurologic deficits. 10.Psych: (AAO) x3. Appropriate mood and affect
[2021-03-11 05:54] LABS: Abs Immature Grans 0.01 10^3/uL (0.0-0.06); Absolute Basophil Count 0.04 10^3/uL (0.0-0.2); Absolute Lymphocyte Count 2.19 10^3/uL (1.2-3.4); Absolute Monocyte Count 0.65 10^3/uL (0.1-0.8); Basophils % 0.6; Eosinophils % 1.6; HCT 39.5 % (36.0-46.0); HGB 12.7 g/dL (11.2-15.7); Immature Grans % 0.2; Lymphocytes % 35.4; MCH 28.4 pg (27.0-33.0); MCHC 32.2 % (32.0-36.0); MCV 88.4 fL (80-95); MPV 11.2 fL (8.0-11.0); Monocytes % 10.5; Neutrophils % 51.7; Nucleated RBC 0 %; Platelet Count 252 10^3/uL (130-400); RBC 4.47 10^6/uL (3.93-5.22); RDW 12.6 % (11.7-14.6); RDW-SD 40.6 fL; WBC 6.19 10^3/uL (4.4-10.8)
[2021-03-11] MEDS: Normal Saline 1,000 ML 1000 ML IV (06:00)
[2021-03-11 06:02] LABS: Bilirubin Negative (Negative); Blood Moderate (Negative); Clarity Sl Cloudy (Clear); Glucose Negative (Negative); Ketones Negative (Negative); Leukocyte Esterase Negative (Negative); Nitrite Negative (Negative); Specific Gravity >= 1.030 (1.005-1.025); Urobilinogen 0.2 EU/dL (Up TO 0.2)
[2021-03-11 06:08] LABS: RBC >50 HPF (0-2)
[2021-03-11 06:09] LABS: C & S Indicated? No
[2021-03-11 06:18] LABS: ALT 21 U/L (14-59); AST 15 U/L (15-37); Albumin 3.8 g/dL (3.4-5.0); Alkaline Phosphatase 43 U/L (46-116); BUN 12 mg/dL (7-18); Bilirubin, Total 0.4 mg/dL (0.2-1.0); CREATININE 1.3 mg/dL (0.55-1.02); Calcium 8.7 mg/dL (8.5-10.1); Chloride 108 mmol/L (98-107); Estimated GFR 45.37 (mL/min/1.73m2); Glucose 94 mg/dL (74-106); Magnesium 1.8 mg/dL (1.8-2.4); Potassium 3.2 mmol/L (3.5-5.1); Sodium 142 mmol/L (136-145); TSH (W/Ref FT4) 3.85 uIU/mL (0.36-3.74); Total Protein 7.2 g/dL (6.4-8.2)
[2021-03-11 06:19] LABS: Troponin I < 0.05 ng/mL (<0.06)
[2021-03-11] MEDS: POTASSIUM CHLORIDE 20 MEQ/100 ML BAG 50 MEQ IVPB (06:34)
[2021-03-11 06:36] LABS: FREE T4 1.18 ng/dL (0.76-1.46)
== END 2021-03-11 08:59 | disposition home or self-care (01) ==
PROVIDERS: Emergency Provider Student in an Organized Health Care Education/Training Program; PCP Nurse Practitioner Family
DX: R00.2 Palpitations (principal); E87.6 Hypokalemia
CPT/HCPCS: 36415; 80053; 93005; 96361; 96365; 96366; 99284; 81003; 81015; 83735; 84439; 84443; 84484; 85025; 93010; 93225; 99283; J3480

== ENCOUNTER 2021-03-11 07:19 | Outpatient (RCR) | payer MEDICAID, SELFPAY | END 2021-04-09 23:59 | disposition home or self-care (01) | LOC: RT 07:19 | PROVIDERS: PCP Nurse Practitioner Family; Visit Provider Student in an Organized Health Care Education/Training Program | DX: R00.2 Palpitations (principal); I47.1 Supraventricular tachycardia | CPT/HCPCS: 93226 ==

== ENCOUNTER 2021-03-18 19:44 | Outpatient (REF) | payer MEDICAID, SELFPAY ==
[2021-03-18 21:25] LABS: Anion Gap 5.4 mmol/L (3-11); BUN 14 mg/dL (7-18); CO2 29.6 mmol/L (21.0-32.0); CREATININE 1.1 mg/dL (0.55-1.02); Calcium 8.9 mg/dL (8.5-10.1); Chloride 107 mmol/L (98-107); Estimated GFR 55.01 (mL/min/1.73m2); Glucose 84 mg/dL (74-106); Potassium 4.6 mmol/L (3.5-5.1); Sodium 142 mmol/L (136-145)
== END 2021-03-18 19:45 | disposition home or self-care (01) ==
LOC: NCHCN 19:44
PROVIDERS: PCP Nurse Practitioner Family; Visit Provider Family Medicine
DX: N17.9 Acute kidney failure, unspecified (principal)
CPT/HCPCS: 80048

== ENCOUNTER 2021-07-09 14:04 | Outpatient (REF) | payer MEDICAID, SELFPAY ==
[2021-07-10 00:35] LABS: COVID-19 RT-PCR UVMMC Result Negative (Negative)
== END 2021-07-09 14:05 | disposition home or self-care (01) ==
LOC: NCHCN 14:04
PROVIDERS: PCP Nurse Practitioner Family; Visit Provider Nurse Practitioner Family
DX: Z20.822 Contact with and (suspected) exposure to COVID-19 (principal); J06.9 Acute upper respiratory infection, unspecified
CPT/HCPCS: U0003

== ENCOUNTER 2021-07-29 14:30 | Emergency (ER) | payer MEDICAID, SELFPAY ==
[2021-07-29] VITALS (8 sets, daily range): BP systolic 106–129; BP diastolic 36–87; PULSE 20–105; RESP 15–18; TEMP 36.8; O2SAT 99–100
--- NOTE | 2021-07-29 14:30 | RT.EKG_ITS ---
APPROVED REPORT Exam: Resting ECG Reason for Exam: Palpitations Patient Location: E HR:71 bpm ECG Measurements Heart Rate 71 AXIS LA 127 P 55 QRSd 78 QRS 7 QT 412 T 8 QTc 448 Conclusion Sinus rhythm...normal P axis, V-rate 60- 99 no STEMI, no WPW, no brugada, qtc 448, no HOCM I have reviewed and interpreted ECG and agree with software generated interpretation.
--- NOTE | 2021-07-29 14:45 | DI.RAD_ITS ---
Exam(s) XR CHEST 2V PA LATERAL EXAM: XR CHEST 2V PA LATERAL CLINICAL HISTORY: Chest Pain TECHNIQUE: 2D digital imaging was performed. COMPARISON: CR,XR XR CHEST 2V PA LATERAL from 03/08/2021 FINDINGS: MEDIASTINUM: Normal. HEART: Normal. PULMONARY VASCULATURE: Normal. LUNGS: Clear. PLEURAL SPACE: No pleural effusion or pneumothorax. BONE:Unremarkable for age. IMPRESSION: No acute abnormality. DATA REPOSITORY: RADIATION DOSE DELIVERED:
--- NOTE | 2021-07-29 14:52 | ED.GENADUL_ITS ---
Discharge Plan Disposition Patient Disposition: HOME Condition: Stable Discharge Details Clinical Impression: Heart palpitations, Anterior chest wall pain Primary Care Provider: Lynn Hernadez ED Provider: Zayda Morton Home Meds and New Rx's Prescriptions: No Action levetiracetam [Keppra] 500 mg tablet 500 mg PO BID RF: 0 lamotrigine [Lamictal] 25 mg tablet 75 mg PO DAILY RF: 0 famotidine 20 mg Tablet 20 mg PO DAILY RF: 0 Discharge Instructions Instructions: Heart Palpitations (ED), Chest Wall Pain (ED) Additional Instructions: Please keep your previously scheduled appointments for Mammography and US. Cardiac workup within normal limits. Chest xray shows no abnormality. Alternate Tylenol and Ibuprofen every 4-6 hours as needed for pain and swelling. Alternate ice and heat. Follow up with primary care provider in 3-5 days. Return to ED sooner if any worsening or concerns. Increase oral fluids. Referrals: Lynn Hernadez [Primary Care Provider] - 1 week Discharge Data Discharge Date/Time-TO BE ENTERED AT DEPARTURE: 07/29/21 17:02 Medical Decision Making 41-year-old female presents to the ER with chief complaint of left side chest pain which has been ongoing since . Patient was seen by [facility] prior to arrival and encouraged to have work-up here in the ER. She reports constant left-sided pain since . She also reports intermittent palpitations which she has had in the past and had evaluated in the ER with a Holter monitor. She denies any other associated symptoms including shortness of breath, cough, trauma to the chest, nausea vomiting diarrhea or fever. She is vaccinated for Covid. Cardiac workup ordered. Largely WNL. Normal Troponin and EKG. EXAM: XR CHEST 2V PA LATERAL CLINICAL HISTORY: Chest Pain TECHNIQUE: 2D digital imaging was performed. COMPARISON: CR,XR XR CHEST 2V PA LATERAL from 03/08/2021 FINDINGS: MEDIASTINUM: Normal. HEART: Normal. PULMONARY VASCULATURE: Normal. LUNGS: Clear. PLEURAL SPACE: No pleural effusion or pneumothorax. BONE:Unremarkable for age. IMPRESSION: No acute abnormality. Patient given toradol, Strict return instructions and instructions to Follow up with PCP. HPI General Mode of arrival: ambulatory . Date/Time Provider Initiated Documentation: 07/29/21 14:32 . Limitations to Documentation: no limitations . Information obtained by: patient . HPI Narrative: 41-year-old female presents to the ER with chief complaint of left side chest pain which has been ongoing since . Patient was seen by women's wellness prior to arrival and encouraged to have work-up here in the ER. She reports constant left-sided pain since . She also reports intermittent palpitations which she has had in the past and had evaluated in the ER with a Holter monitor. She denies any other associated symptoms including shortness of breath, cough, trauma to the chest, nausea vomiting diarrhea or fever. She is vaccinated for Covid. Related Data Home Medications Medication Instructions Recorded Confirmed famotidine 20 mg PO DAILY 01/22/21 07/29/21 lamotrigine 25 mg tablet 75 mg PO DAILY tab 07/22/21 07/29/21 levetiracetam 500 mg tablet 500 mg PO BID 07/22/21 07/29/21 Allergies Allergy/AdvReac Type Severity Reaction Status Date / Time doxycycline Allergy Unknown Skin Rash Unverified 07/29/21 14:46 Sulfa (Sulfonamide Allergy Verified 07/29/21 14:46 Antibiotics) General Stated Complaint: Palpitatns MERRICK: 2 Review of Systems All systems reviewed & are unremarkable except as noted in HPI and below Cardiovascular Cardiovascular: Reports chest pain and Reports palpitations Endocrine Endocrine: Reports palpitations PFSH All Active Problems (Updated 07/29/21 @ 16:04 by Zayda Morton) Anterior chest wall pain (Acute) Heart palpitations (Acute) Anxiety (Chronic) Medical History Back pain Chronic GERD Surgical History Craniotomy (~11/1984) benign meningioma removed. No residual deficits, no seizures GERD - unknown surgical procedure (~2010) Family History Mother No problems noted. Father , COPD No problems noted. Grandmother , renal failure No problems noted. Social History Smoking/Tobacco Use Status: Never Smoking risk assessment performed?: Yes Alcohol Intake: current Alcohol Intake frequency: holidays/special occasions only Drug use: Never Substance use type: does not use Do you feel safe at home: Yes Do you feel safe in your relationship?: Yes Female Reproductive History Menstrual control method: condoms History History 3 Para 2 Hx # Term Pregnancies Multiple births Hx # Pregnancies Ectopic pregnancies AB induced Hx Number of Living Children AB spontaneous 1 Exam Narrative Exam Narrative: Constitutional: Alert and oriented x3. Appears stated age. Normal body habitus. Head: Normocephalic, no trauma. Eyes: Pupils PERRL, Red reflex noted, EOM's intact. Eyelids symmetrical without lesions, discharge, or swelling. ENT: Bilateral TM's WNL, External ear normal to inspection, no mastoid TTP, swelling, or erythema, Nasal turbinates WNL, no nasal discharge. Normal dentition, Posterior pharynx WNL, no exudate. Chest: RRR, Normal S1, S2, distal pulses intact. Resp: Lungs clear to auscultation bilaterally, no wheezes, rales, or rhonchi. Abdomen: Soft, non-distended, Normoactive bowel sounds all 4 quads. Musculoskeletal: Normal gait, 5/5 strength to all four extremities. Skin: No suspicious rashes or lesions. Capillary refill less than 2 sec. Neurologic: Cranial nerves II-XII intact. Alert and oriented x 3. Motor: No deficits noted. Sensory: Intact bilaterally all 4 extremities. Reflexes: DTR's intact bilaterally.. Hematologic/Lymphatic: No ecchymosis, no lymphadenopathy. Course Vital Signs Vital signs: Vital Signs Temperature 36.8 C 07/29/21 14:41 Pulse 20 L 07/29/21 14:41 Respiratory Rate 16 07/29/21 14:41 Blood Pressure 122/87 07/29/21 14:41 Pulse Oximetry 100 07/29/21 14:41 Temperature 36.8 C 07/29/21 14:41 Temperature Source Skin 07/29/21 14:41 Pulse 20 L 07/29/21 14:41 Respiratory Rate 16 07/29/21 14:41 Respiratory Effort 07/29/21 14:41 Blood Pressure 122/87 07/29/21 14:41 Blood Pressure Position Supine 07/29/21 14:41 Pulse Oximetry 100 07/29/21 14:41 Oxygen Delivery Method Room Air 07/29/21 14:41 Oxygen Flow Rate 0 07/29/21 14:41 Pain Level 5 07/29/21 14:41
[2021-07-29 15:00] LABS: Abs Immature Grans 0.02 10^3/uL (0.0-0.06); Absolute Basophil Count 0.07 10^3/uL (0.0-0.2); Absolute Eosinophil Count 0.09 10^3/uL (0.0-0.7); Absolute Lymphocyte Count 1.73 10^3/uL (1.2-3.4); Absolute Monocyte Count 0.69 10^3/uL (0.1-0.8); Absolute Neutrophil Count 3.45 10^3/uL (1.2-6.7); Basophils % 1.2; Eosinophils % 1.5; HCT 43.2 % (36.0-46.0); HGB 13.6 g/dL (11.2-15.7); Immature Grans % 0.3; Lymphocytes % 28.6; MCH 28.6 pg (27.0-33.0); MCHC 31.5 % (32.0-36.0); MCV 90.8 fL (80-95); MPV 10.3 fL (8.0-11.0); Monocytes % 11.4; Nucleated RBC 0 %; Platelet Count 284 10^3/uL (130-400); RBC 4.76 10^6/uL (3.93-5.22); RDW 11.9 % (11.7-14.6); RDW-SD 39.9 fL; WBC 6.05 10^3/uL (4.4-10.8)
[2021-07-29 15:15] LABS: ALT 31 U/L (14-59); AST 21 U/L (15-37); Albumin 4.3 g/dL (3.4-5.0); Alkaline Phosphatase 60 U/L (46-116); Anion Gap 6.9 mmol/L (3-11); BUN 13 mg/dL (7-18); Bilirubin, Total 0.4 mg/dL (0.2-1.0); CO2 28.1 mmol/L (21.0-32.0); CREATININE 1.1 mg/dL (0.55-1.02); Calcium 9.1 mg/dL (8.5-10.1); Chloride 106 mmol/L (98-107); Estimated GFR 55.01 (mL/min/1.73m2); Glucose 96 mg/dL (74-106); Potassium 3.4 mmol/L (3.5-5.1); Sodium 141 mmol/L (136-145); Total Protein 7.7 g/dL (6.4-8.2)
[2021-07-29 15:23] LABS: Troponin I < 50 ng/L (<or=60)
[2021-07-29] MEDS: Ketorolac 15 MG/ML VIAL IVP (16:30)
[2021-07-29] MEDS: Normal Saline Flush 10 ML SYR IVP (17:42)
== END 2021-07-29 17:02 | disposition home or self-care (01) ==
PROVIDERS: Emergency Provider Registered Nurse Emergency; PCP Nurse Practitioner Family
DX: R00.2 Palpitations (principal); R07.89 Other chest pain
CPT/HCPCS: 36415; 80053; 93005; 96374; 99284; 71046; 83735; 84484; 85025; 93010; J1885

== ENCOUNTER 2021-08-01 15:07 | Outpatient (REF) | payer MEDICAID, SELFPAY ==
[2021-08-01 21:30] LABS: Anion Gap 7.9 mmol/L (3-11); BUN 14 mg/dL (7-18); CO2 30.1 mmol/L (21.0-32.0); CREATININE 1.2 mg/dL (0.55-1.02); Calcium 9.3 mg/dL (8.5-10.1); Chloride 105 mmol/L (98-107); Estimated GFR 49.76 (mL/min/1.73m2); Glucose 88 mg/dL (74-106); Magnesium 2.2 mg/dL (1.8-2.4); Sodium 143 mmol/L (136-145)
[2021-08-03 18:15] LABS: Lamotrigine 2.5 mcg/mL (2.5 - 15.0)
== END 2021-08-01 15:08 | disposition home or self-care (01) ==
LOC: NCHCN 15:07
PROVIDERS: PCP Nurse Practitioner Family; Visit Provider Nurse Practitioner Family
DX: R00.2 Palpitations (principal); E87.6 Hypokalemia; Z51.81 Encounter for therapeutic drug level monitoring; Z79.899 Other long term (current) drug therapy; F41.8 Other specified anxiety disorders
CPT/HCPCS: 80048; 80175; 83735; 84443

== ENCOUNTER 2021-10-24 03:54 | Outpatient (CLI) | payer MEDICAID, SELFPAY ==
[2021-11-03 18:33] LABS: Testosterone, Free 0.17 ng/dL (0.06-0.98); Testosterone, Total 15 ng/dL (8-60)
== END 2021-10-24 03:55 | disposition home or self-care (01) ==
LOC: LBO 03:54
PROVIDERS: PCP Nurse Practitioner Family; Visit Provider Nurse Practitioner Women's Health
DX: F41.9 Anxiety disorder, unspecified (principal)
CPT/HCPCS: 36415; 84402; 84403

== ENCOUNTER 2022-06-09 15:23 | Outpatient (REF) | payer MEDICAID, SELFPAY ==
[2022-06-09 15:36] LABS: Abs Immature Grans 0.02 10^3/uL (0.0-0.06); Absolute Basophil Count 0.03 10^3/uL (0.0-0.2); Absolute Eosinophil Count 0.08 10^3/uL (0.0-0.7); Absolute Lymphocyte Count 1.75 10^3/uL (1.2-3.4); Absolute Monocyte Count 0.52 10^3/uL (0.1-0.8); Absolute Neutrophil Count 2.34 10^3/uL (1.2-6.7); Basophils % 0.6; Eosinophils % 1.7; HCT 41.4 % (36.0-46.0); HGB 13.6 g/dL (11.2-15.7); Immature Grans % 0.4; Lymphocytes % 36.9; MCH 29.3 pg (27.0-33.0); MCHC 32.9 % (32.0-36.0); MCV 89 fL (80-95); MPV 11.8 fL (8.0-11.0); Neutrophils % 49.4; Platelet Count 260 10^3/uL (130-400); RBC 4.64 10^6/uL (3.93-5.22); RDW 12.7 % (11.7-14.6); RDW-SD 41.3 fL; WBC 4.74 10^3/uL (4.4-10.8)
[2022-06-09 16:06] LABS: ALT 22 U/L (14-59); AST 27 U/L (15-37); Albumin 4.2 g/dL (3.4-5.0); Alkaline Phosphatase 55 U/L (46-116); Anion Gap 5.7 mmol/L (3-11); BUN 17 mg/dL (7-18); Bilirubin, Total 0.5 mg/dL (0.2-1.0); CO2 26.3 mmol/L (21.0-32.0); CREATININE 1.2 mg/dL (0.55-1.02); Calcium 9.2 mg/dL (8.5-10.1); Chloride 108 mmol/L (98-107); Estimated GFR 58.32 (mL/min/1.73m2); Glucose 83 mg/dL (74-106); Lipase 201 U/L (73-393); Potassium 4.5 mmol/L (3.5-5.1); Sodium 140 mmol/L (136-145); Total Protein 7.5 g/dL (6.4-8.2)
== END 2022-06-09 15:24 | disposition home or self-care (01) ==
LOC: NCHCN 15:23
PROVIDERS: PCP Nurse Practitioner Family; Visit Provider Nurse Practitioner Family
DX: R10.9 Unspecified abdominal pain (principal)
CPT/HCPCS: 80053; 83690; 85025

== ENCOUNTER 2022-06-26 15:09 | Outpatient (REF) | payer MEDICAID, SELFPAY | END 2022-06-26 15:10 | disposition home or self-care (01) | LOC: NCHCN 15:09 | PROVIDERS: PCP Nurse Practitioner Family; Visit Provider Nurse Practitioner Family | DX: R10.9 Unspecified abdominal pain (principal) | CPT/HCPCS: 87329; 87177 ==

== ENCOUNTER 2022-06-27 16:19 | Outpatient (REF) | payer MEDICAID, SELFPAY | END 2022-06-27 16:20 | disposition home or self-care (01) | LOC: NCHCN 16:19 | PROVIDERS: PCP Nurse Practitioner Family; Visit Provider Nurse Practitioner Family | DX: R10.9 Unspecified abdominal pain (principal) | CPT/HCPCS: 87329; 83630; 87177 ==

== ENCOUNTER 2022-07-18 20:58 | Outpatient (REF) | payer MEDICAID, SELFPAY ==
[2022-07-20 22:23] LABS: Campylobacter PCR Negative (Negative); Salmonella PCR Negative (Negative); Shiga Toxin PCR Negative (Negative); Shigella/Enteroinvasive Ecoli Negative (Negative)
== END 2022-07-18 20:59 | disposition home or self-care (01) ==
LOC: NCHCN 20:58
PROVIDERS: PCP Nurse Practitioner Family; Visit Provider Nurse Practitioner Family
DX: K58.9 Irritable bowel syndrome, unspecified (principal)
CPT/HCPCS: 87505

== ENCOUNTER 2022-08-26 02:15 | Outpatient (CLI) | payer MEDICAID, SELFPAY ==
--- NOTE | 2022-08-26 | DI.MAMMO_ITS ---
Exam(s) MAMMO SCREENING EXAM: MAMMO SCREENING CLINICAL HISTORY: SCREENING, Z12.31. TECHNIQUE: Bilateral full field digital CC and MLO mammographic images were obtained with 3D tomosyn thesis and utilizing computer aided detection (CAD). COMPARISON: Prior outside mammograms were reviewed. FINDINGS: The fibroglandular tissue pattern is again noted be moderately dense, this somewhat decreasing the se nsitivity of the mammogram for finding hidden underlying lesions. There are no obvious new spiculated masses nor malignant appearing microcalcification groups in eithe r breast.. There is no new significant architectural distortion nor skin thickening-retraction. IMPRESSION: Dense bilateral fibroglandular tissue. No obvious radiographic evidence of malignancy. I note that a prior outside institution ultrasound examination of August 2021 revealed a small 3 mil limeter microcyst at the 2 o'clock position of the right breast. BI-RADS Category 2 - Benign Findings Breast Density - Category C - Heterogeneously dense Breast density Category C or D implies that the patient has dense breast tissue. Dense breast tissue can make it harder to find cancer on a mammogram. Dense breast tissue is also associated with an incr eased risk of breast cancer. This information about the result of the mammogram report was provided to the patient to raise their awareness. Use this report when you speak with the patient about their risks for breast cancer, which includes their family history. At that time, you may recommend additional screening tests (Ultrasoun d or MRI) as these tests may add significant information. A negative radiographic report should not delay biopsy if a dominant or clinically suspicious mass is present. Up to ten percent of cancers are not identified on mammography. A negative report may reinforce clinical impression. Adenosis and dense breasts may obscure an underlying neoplasm. False positive reports average 6 to 10%. Patient will receive a letter notifying them of these results.
== END 2022-08-26 02:35 ==
LOC: DI 02:16
PROVIDERS: PCP Nurse Practitioner Family; Visit Provider Nurse Practitioner Family
DX: Z12.31 Encounter for screening mammogram for malignant neoplasm of breast (principal); R92.8 Other abnormal and inconclusive findings on diagnostic imaging of breast
CPT/HCPCS: 77063; 77067

== ENCOUNTER 2023-10-19 16:33 | Outpatient (REF) | payer MEDICAID, SELFPAY | END 2023-10-19 16:34 | disposition home or self-care (01) | LOC: LBN 16:33 | PROVIDERS: PCP Nurse Practitioner Family; Visit Provider Nurse Practitioner Women's Health | DX: N76.0 Acute vaginitis (principal) | CPT/HCPCS: 87480; 87510; 87660 ==

== ENCOUNTER → 2023-10-21 03:01 | Outpatient (CLI) | payer MEDICAID, SELFPAY ==
--- NOTE | 2023-10-21 15:15 | DI.MAMMO_ITS ---
Exam(s) MAMMO SCREENING EXAM: MAMMO SCREENING CLINICAL HISTORY: screening TECHNIQUE: Bilateral full field digital CC and MLO mammographic images were obtained with 3D tomosyn thesis and utilizing computer aided detection (CAD). COMPARISON: Available for comparison. FINDINGS: Masses/Architectural Distortion: None seen. Microcalcifications: No suspicious pleomorphic-type are seen. Skin Thickening/Nipple Retraction: None. IMPRESSION: 1. No significant interval change with no specific features of malignancy noted. 2. Unless there is more urgent need, screening mammography is recommended, as per [employer] guidelines. BI-RADS Category 1 - Negative Breast Density - Category C - Heterogeneously dense Breast density category C or D implies that the patient has dense breast tissue. Dense breast tissue is very common and is not abnormal but dense breast tissue can make it harder to find cancer on a ma mmogram. Also, dense breast tissue may increase their breast cancer risk. This information about the result of the mammogram report was provided to the patient to raise their awareness. Use this report when you speak with the patient about their risks for breast cancer, which includes their family hist ory. At that time, you may recommend for more screening tests (Ultrasound or MRI) as they might be us eful based on their risk. A negative radiographic report should not delay biopsy if a dominant or clinically suspicious mass is present. Up to ten percent of cancers are not identified on mammography. A negative report may reinforce clinical impression. Adenosis and dense breasts may obscure an underlying neoplasm. False positive reports average 6 to 10%. Patient will receive a letter notifying them of these results.
== END ==
PROVIDERS: PCP Nurse Practitioner Family; Visit Provider Nurse Practitioner Women's Health
DX: Z12.31 Encounter for screening mammogram for malignant neoplasm of breast (principal)
CPT/HCPCS: 77063; 77067

== ENCOUNTER 2024-02-16 18:16 | Outpatient (REF) | payer MEDICAID, SELFPAY ==
--- NOTE | 2024-02-16 17:00 | PAPFT_PTH ---
PATIENT: Cristina Jimenez LOC: [facility]#:[id number] AGE/SX: 44/F ROOM: RE02/16/[address]: Noelle Kirkpatrick : 1980 BED: DIS: 02/16/2024 SPEC #: [id number] RECD: 02/17/24 13:29 STATUS: ELVIS MCBRIDE #: [id number] RANDEE: 02/16/24 17:[address]: Noelle Kirkpatrick DEPT: [facility] Cytology RECD BY: Jessie Pleitez Tissues: 1 - CX/ENDOCX FOR PAP SMEARS Procedures: PAP THIN PREP/UVM Screening HPV DNA PROBE Comments: [id number] (HPV 16 & 18/45) (CHLAMYDIA/GC)
[2024-02-16 21:29] LABS: HCT 38.3 % (36.0-46.0); HGB 12.1 g/dL (11.2-15.7); MCH 28.9 pg (27.0-33.0); MCHC 31.6 % (32.0-36.0); MCV 91 fL (80-95); MPV 11.3 fL (8.0-11.0); Platelet Count 251 10^3/uL (130-400); RBC 4.19 10^6/uL (3.93-5.22); RDW 12.6 % (11.7-14.6); RDW-SD 42.3 fL; WBC 5.66 10^3/uL (4.4-10.8)
[2024-02-16 21:48] LABS: ALT 23 U/L (14-59); AST 28 U/L (15-37); Albumin 3.8 g/dL (3.4-5.0); Alkaline Phosphatase 65 U/L (46-116); Anion Gap 3.3 mmol/L (3-11); BUN 14 mg/dL (7-18); Bilirubin, Total 0.26 mg/dL (0.2-1.0); CO2 31.7 mmol/L (21.0-32.0); Calcium 8.9 mg/dL (8.5-10.1); Calculated LDL 76 mg/dL (<100); Chloride 106 mmol/L (98-107); Cholesterol 158 mg/dL (<200); Estimated GFR 71.69 (mL/min/1.73m2); Glucose 88 mg/dL (74-106); HDL Cholesterol 72 mg/dL (40-60); Potassium 4.4 mmol/L (3.5-5.1); Sodium 141 mmol/L (136-145); Total Protein 6.9 g/dL (6.4-8.2); Triglyceride 51 mg/dL (<150)
[2024-02-18 12:46] LABS: Chlamydia Result Negative (Negative); GC Result Negative (Negative)
== END 2024-02-16 18:17 | disposition home or self-care (01) ==
LOC: NCHCN 18:16
PROVIDERS: PCP Nurse Practitioner Family; Visit Provider Nurse Practitioner Family
DX: Z00.00 Encounter for general adult medical examination without abnormal findings (principal); G43.909 Migraine, unspecified, not intractable, without status migrainosus; Z12.4 Encounter for screening for malignant neoplasm of cervix
CPT/HCPCS: 80053; 80061; 85027; 87491; 87591; 88142; 87624

== ENCOUNTER 2024-03-09 12:42 | Outpatient (REF) | payer MEDICAID, SELFPAY ==
[2024-03-09 15:12] LABS: Abs Immature Grans 0.04 10^3/uL (0.0-0.06); Absolute Basophil Count 0.05 10^3/uL (0.0-0.2); Absolute Monocyte Count 0.76 10^3/uL (0.1-0.8); Absolute Neutrophil Count 3.15 10^3/uL (1.2-6.7); Basophils % 0.8 %; Eosinophils % 4.9 %; HCT 41.7 % (36.0-46.0); HGB 13.5 g/dL (11.2-15.7); Immature Grans % 0.7 %; Lymphocytes % 29.5 %; MCH 29.4 pg (27.0-33.0); MCHC 32.4 % (32.0-36.0); MCV 91 fL (80-95); MPV 11.4 fL (8.0-11.0); Monocytes % 12.5 %; Neutrophils % 51.6 %; Platelet Count 290 10^3/uL (130-400); RBC 4.59 10^6/uL (3.93-5.22); RDW 12.5 % (11.7-14.6); RDW-SD 41.3 fL
[2024-03-09 15:26] LABS: Mono Screening Negative (Negative)
[2024-03-09 16:22] LABS: ALT 21 U/L (14-59); AST 21 U/L (15-37); Albumin 3.9 g/dL (3.4-5.0); Alkaline Phosphatase 71 U/L (46-116); Anion Gap 8.8 mmol/L (3-11); BUN 20 mg/dL (7-18); Bilirubin, Total 0.48 mg/dL (0.2-1.0); CO2 26.2 mmol/L (21.0-32.0); CREATININE 1.1 mg/dL (0.55-1.02); Calcium 9.1 mg/dL (8.5-10.1); Chloride 109 mmol/L (98-107); Estimated GFR 63.94 (mL/min/1.73m2); Glucose 101 mg/dL (74-106); Potassium 4.7 mmol/L (3.5-5.1); Sodium 144 mmol/L (136-145)
== END 2024-03-09 12:43 | disposition home or self-care (01) ==
LOC: NCHCN 12:42
PROVIDERS: PCP Nurse Practitioner Family; Visit Provider Nurse Practitioner Family
DX: L50.1 Idiopathic urticaria (principal)
CPT/HCPCS: 80053; 85025; 86308

== ENCOUNTER 2024-07-20 15:50 | Outpatient (REF) | payer MEDICAID, SELFPAY ==
[2024-07-20 21:58] LABS: Abs Immature Grans 0.03 10^3/uL (0.0-0.06); Absolute Basophil Count 0.04 10^3/uL (0.0-0.2); Absolute Eosinophil Count 0.07 10^3/uL (0.0-0.7); Absolute Lymphocyte Count 2.32 10^3/uL (1.2-3.4); Absolute Monocyte Count 0.82 10^3/uL (0.1-0.8); Absolute Neutrophil Count 3.61 10^3/uL (1.2-6.7); Basophils % 0.6 %; HGB 13.1 g/dL (11.2-15.7); Immature Grans % 0.4 %; Lymphocytes % 33.7 %; MCH 29.3 pg (27.0-33.0); MCV 92 fL (80-95); MPV 11.6 fL (8.0-11.0); Monocytes % 11.9 %; Neutrophils % 52.4 %; Platelet Count 272 10^3/uL (130-400); RBC 4.47 10^6/uL (3.93-5.22); RDW 12.7 % (11.7-14.6); RDW-SD 42.2 fL; WBC 6.89 10^3/uL (4.4-10.8)
[2024-07-20 22:45] LABS: ALT 23 U/L (14-59); AST 23 U/L (15-37); Albumin 4.3 g/dL (3.4-5.0); Alkaline Phosphatase 64 U/L (46-116); Anion Gap 9.5 mmol/L (3-11); BUN 16 mg/dL (7-18); Bilirubin, Total 0.56 mg/dL (0.2-1.0); CO2 25.5 mmol/L (21.0-32.0); CREATININE 1.1 mg/dL (0.55-1.02); Calcium 9.4 mg/dL (8.5-10.1); Chloride 108 mmol/L (98-107); Estimated GFR 63.94 (mL/min/1.73m2); Glucose 91 mg/dL (74-106); Lipase 52 U/L (<78); Potassium 4.7 mmol/L (3.5-5.1); Sodium 143 mmol/L (136-145); Total Protein 7.5 g/dL (6.4-8.2)
== END 2024-07-20 15:51 | disposition home or self-care (01) ==
LOC: NCHCN 15:50
PROVIDERS: PCP Nurse Practitioner Family; Visit Provider Nurse Practitioner Family
DX: R10.9 Unspecified abdominal pain (principal)
CPT/HCPCS: 80053; 83690; 85025

== ENCOUNTER 2024-07-22 11:08 | Outpatient (CLI) | payer MEDICAID, SELFPAY ==
--- NOTE | 2024-07-22 | DI.RAD_ITS ---
Exam(s) XR ABDOMEN FLAT PLATE EXAM: 2D digital imaging was performed. CLINICAL HISTORY: ABD PAIN, ASSESS STOOL BURDEN, R10.9. COMPARISON: CT CT RENAL COLIC WO from 01/22/2021 TECHNIQUE: Supine views of the abdomen performed. FINDINGS: BOWEL GAS PATTERN: Stomach, small bowel and colon are nondistended. Small quantity of stool. CALCIFICATIONS: No radiopaque calcifications. OSSEOUS STRUCTURES: Unremarkable for age. Lung bases: Clear. IMPRESSION: 1. Nonobstructive bowel gas pattern. Small quantity of stool. 2. No radiopaque calculi. DATA REPOSITORY: RADIATION DOSE DELIVERED:
== END 2024-07-22 11:28 ==
LOC: DI 11:08
PROVIDERS: PCP Nurse Practitioner Family; Visit Provider Nurse Practitioner Family
DX: R10.9 Unspecified abdominal pain (principal)
CPT/HCPCS: 74018

== ENCOUNTER 2024-07-28 01:22 | Outpatient (CLI) | payer MEDICAID, SELFPAY ==
--- NOTE | 2024-07-28 07:59 | DI.US_ITS ---
Exam(s) US PELVIS TRANSVAGINAL EXAM: US PELVIS TRANSVAGINAL CLINICAL HISTORY: pelvic pain,r10.2. TECHNIQUE: Transabdominal and transvaginal pelvic ultrasound was performed using standard protocol. COMPARISON: US US PELVIS TRANSVAGINAL from 07/29/2018 FINDINGS: UTERUS: Position: Anteverted. Size: 10.2 long by 5.7 AP by 6.7 transverse cm Endometrium: 1.0 cm. Normal for patient's menstrual status. Myometrium: Unremarkable. Cervix: Unremarkable. OVARIES: Right: 3.1 x 1.9 x 2.6 cm Cyst or mass: No suspicious cystic or solid masses. Left: 2.7 x 1.5 x 1.7 cm Cyst or mass: No suspicious cystic or solid masses. DOPPLER: Color: Symmetric and uniform flow to both ovaries. CUL-DE-SAC: Free fluid: None. Other: None. IMPRESSION: 1. Normal-appearing uterus with endometrial stripe within normal limits. 2. Unremarkable bilateral ovaries. DATA REPOSITORY:
== END 2024-07-28 01:42 ==
LOC: DI 01:22
PROVIDERS: PCP Nurse Practitioner Family; Visit Provider Nurse Practitioner Women's Health
DX: R10.2 Pelvic and perineal pain (principal)
CPT/HCPCS: 76830; 76856

== ENCOUNTER 2024-09-13 12:34 | Outpatient (CLI) | payer MEDICAID, SELFPAY ==
[2024-09-13 11:43] LABS: Kit/Specimen SENT
[2024-09-13 11:49] LABS: Bilirubin Negative (Negative); Blood Small (Negative); Clarity Sl Cloudy (Clear); Glucose Negative (Negative); Ketones Negative (Negative); Leukocyte Esterase Negative (Negative); Nitrite Negative (Negative); Urobilinogen 0.2 mg/dL (Up to 0.2)
[2024-09-13 11:50] LABS: Absolute Basophil Count 0.03 10^3/uL (0.0-0.2); Absolute Eosinophil Count 0.09 10^3/uL (0.0-0.7); Absolute Lymphocyte Count 1.66 10^3/uL (1.2-3.4); Absolute Monocyte Count 0.49 10^3/uL (0.1-0.8); Absolute Neutrophil Count 1.88 10^3/uL (1.2-6.7); Basophils % 0.7 %; Eosinophils % 2.2 %; HCT 38.1 % (36.0-46.0); MCHC 31.5 % (32.0-36.0); MCV 92 fL (80-95); MPV 10.8 fL (8.0-11.0); Monocytes % 11.8 %; Neutrophils % 45.3 %; Platelet Count 243 10^3/uL (130-400); RBC 4.14 10^6/uL (3.93-5.22); WBC 4.15 10^3/uL (4.4-10.8)
[2024-09-13 11:54] LABS: Bacteria Few HPF (Negative); C & S Indicated? No; Casts Negative LPF (Negative); Crystals Negative HPF (Negative); Epithelial Cells Many HPF (Negative); Mucus Negative (Negative); WBC Negative HPF (0-5)
[2024-09-13 12:13] LABS: Hemoglobin A1C 5.3 % (<5.7)
[2024-09-13 12:35] LABS: Iron 163 ug/dL (50-170)
[2024-09-13 12:43] LABS: Anion Gap 6.5 mmol/L (3-11); BUN 9 mg/dL (7-18); CO2 27.5 mmol/L (21.0-32.0); CREATININE 1.1 mg/dL (0.55-1.02); Calcium 8.9 mg/dL (8.5-10.1); Chloride 108 mmol/L (98-107); Estimated GFR 63.94 (mL/min/1.73m2); Ferritin 31 ng/mL (8-252); Folate 3.4 ng/mL (8.6-20.0); Glucose 88 mg/dL (74-106); Potassium 4.1 mmol/L (3.5-5.1); Sodium 142 mmol/L (136-145); TSH 1.59 uIU/mL (0.36-3.74); Vitamin B12 395 pg/mL (193-986); Vitamin D 25 Total 23.4 ng/mL (30-100)
[2024-09-13 13:02] LABS: FREE T4 0.85 ng/dL (0.76-1.46)
[2024-09-14 10:30] LABS: ANA Interpretation Negative (Negative)
== END 2024-09-13 12:35 | disposition home or self-care (01) ==
LOC: LBO 12:34
PROVIDERS: PCP Nurse Practitioner Family; Visit Provider Naturopath
DX: K58.1 Irritable bowel syndrome with constipation (principal); K63.82 Intestinal microbial overgrowth; G43.009 Migraine without aura, not intractable, without status migrainosus; M54.42 Lumbago with sciatica, left side; N94.5 Secondary dysmenorrhea; N94.3 Premenstrual tension syndrome; K21.00 Gastro-esophageal reflux disease with esophagitis, without bleeding; F41.0 Panic disorder [episodic paroxysmal anxiety]; R42 Dizziness and giddiness; R53.82 Chronic fatigue, unspecified; E07.9 Disorder of thyroid, unspecified; R79.9 Abnormal finding of blood chemistry, unspecified; R20.2 Paresthesia of skin; R59.0 Localized enlarged lymph nodes; M79.661 Pain in right lower leg; R10.32 Left lower quadrant pain
CPT/HCPCS: 36415; 80048; 80053; 80061; 82172; 82306; 82525; 83520; 83695; 86141; 81003; 81015; 82607; 82728; 82746; 83036; 83525; 83540; 84439; 84443; 84481; 85025; 86038; 86376; 86800

== ENCOUNTER 2024-10-03 15:21 | Outpatient (CLI) | payer MEDICAID, SELFPAY ==
[2024-10-06 16:38] LABS: IgA 138 mg/dL (85-499); Interpretation (See Note); Tissue Transglutaminase IgA <4.0 CU (<20.0)
== END 2024-10-03 15:22 | disposition home or self-care (01) ==
LOC: LBO 15:21
PROVIDERS: PCP Nurse Practitioner Family; Visit Provider Nurse Practitioner Adult Health
DX: R19.8 Other specified symptoms and signs involving the digestive system and abdomen (principal)
CPT/HCPCS: 36415; 82784; 83516

== ENCOUNTER 2024-10-19 14:23 | Outpatient (REF) | payer MEDICAID, SELFPAY ==
[2024-10-21 23:53] LABS: Calprotectin <50.0 mcg/g
== END 2024-10-19 14:24 | disposition home or self-care (01) ==
LOC: LBN 14:23
PROVIDERS: Nurse Practitioner Adult Health; PCP Nurse Practitioner Family; Visit Provider Nurse Practitioner Family
DX: R19.8 Other specified symptoms and signs involving the digestive system and abdomen (principal)
CPT/HCPCS: 83993

== ENCOUNTER 2024-10-24 01:18 | Outpatient (CLI) | payer MEDICAID, SELFPAY ==
--- NOTE | 2024-10-24 | DI.MAMMO_ITS ---
Exam(s) MAMMO SCREENING EXAM: MAMMO SCREENING CLINICAL HISTORY: Z12.39 Screening TECHNIQUE: Mammograms were interpreted according to the usual protocol including computer analysis w [employer] CAD system, tomosynthesis and C-view imaging. COMPARISON: 2014 through 2023 FINDINGS: The breasts are composed of heterogeneously dense fibroglandular densities, Breast Density category C . No suspicious masses or suspicious microcalcifications are seen. No skin thickening or abnormal axillary lymph nodes are seen. There has been no significant change from prior exams. IMPRESSION: BI-RADS Category 1, Negative mammogram. Yearly screening mammography is recommended. Breast Density Category C, heterogeneously Dense. The mammogram demonstrates the patient's breast tissue is dense. Dense breast tissue is very common a nd is not abnormal but dense breast tissue can make it harder to find cancer on a mammogram. Also, de nse breast tissue may increase breast cancer risk. This information about the result of the mammogram report was provided to the patient to raise their awareness. Use this report when you speak with the patient about their risks for breast cancer, which includes their family history. At that time, you may recommend additional screening tests (Ultrasound or MRI) as they might be useful based on their r isk. A negative radiographic report should not delay biopsy if a dominant or clinically suspicious mass is present. Up to ten percent of cancers are not identified on mammography. A negative report may reinforce clinical impression. Adenosis and dense breasts may obscure an underlying neoplasm. False positive reports average 6 to 10%.
== END 2024-10-24 01:38 ==
LOC: DI 01:20
PROVIDERS: PCP Nurse Practitioner Family; Visit Provider Nurse Practitioner Family
DX: Z12.31 Encounter for screening mammogram for malignant neoplasm of breast (principal); R92.333 Mammographic heterogeneous density, bilateral breasts
CPT/HCPCS: 77063; 77067

== ENCOUNTER 2025-02-28 01:53 | Outpatient (CLI) | payer MEDICAID, SELFPAY ==
--- NOTE | 2025-02-28 | DI.US_ITS ---
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 TECHNIQUE: Ultrasound thyroid performed using standard protocol. COMPARISON: No exams were available for comparison FINDINGS: ISTHMUS: 2 mm RIGHT LOBE: Size: 5.3 x 1.5 x 2.2 cm Echogenicity: Heterogeneous Vascularity: Normal. Nodules: Several colloid cysts. LEFT LOBE: Size: 4.9 x 1.8 x 1.5 cm Echogenicity: Heterogeneous Vascularity: Normal. Nodules: Several colloid cysts. Upper pole nodule: 11 x 6 x 11 millimeter mixed cystic and solid smoothly marginated nodule with comet tail artifact, TR 2. OTHER FINDINGS: No adenopathy. IMPRESSION: Heterogeneous thyroid with multiple colloid cysts. TR 2 mixed cystic solid nodule upper pole left lobe measuring 11 millimeters. DATA REPOSITORY:
== END 2025-02-28 02:13 ==
LOC: DI 01:53
PROVIDERS: PCP Nurse Practitioner Family; Visit Provider Naturopath
DX: E01.2 Iodine-deficiency related (endemic) goiter, unspecified (principal)
CPT/HCPCS: 76536

== ENCOUNTER 2025-02-28 13:13 | Outpatient (CLI) | payer MEDICAID, SELFPAY | END 2025-02-28 13:14 | disposition home or self-care (01) | LOC: LBO 13:14 | PROVIDERS: PCP Nurse Practitioner Family; Visit Provider Naturopath | DX: R42 Dizziness and giddiness (principal); M79.604 Pain in right leg; M54.42 Lumbago with sciatica, left side; E06.3 Autoimmune thyroiditis; R53.83 Other fatigue | CPT/HCPCS: 36415; 86376 ==

== ENCOUNTER 2025-03-08 07:22 | Emergency (ER) | payer MEDICAID, SELFPAY ==
[2025-03-08 07:25] VITALS: BP 103/62; PULSE 61; RESP 16; TEMP 36.8; O2SAT 100
[2025-03-08] MEDS: Cephalexin 500 MG CAP PO (07:38)
--- NOTE | 2025-03-08 07:42 | W.ED.GENAD ---
Discharge Plan Disposition Patient Disposition: Home Condition: Stable Discharge Details Clinical Impression: Cellulitis Primary Care Provider: Noelle Kirkpatrick ED Provider: Yola Whiteside Home Meds and New Rx's Prescriptions: New cephalexin 500 mg capsule 500 mg PO QID 7 Days Qty: 28 0RF No Action magnesium 250 mg tablet 500 mg PO DAILY mecobalamin (vitamin B12) 5,000 mcg tablet,disintegrating 800 mcg PO DAILY propranolol 40 mg tablet 40 mg PO BID Ultra CoQ10 75 mg capsule 75 mg PO DAILY Discharge Instructions Instructions: Cellulitis (Skin Infection), Adult ED Additional Instructions: Take antibiotics as prescribed. Return if worsenign redness, streaking, fever, or inability to tolerate the antibiotic. Referrals: Noelle Kirkpatrick [Primary Care Provider, Medicine] - 3 days Discharge Data Discharge Physician: Yola Whiteside [facility] General Date/Time Provider Initiated Documentation: 03/08/25 07:29. HPI Narrative: 45-year-old female presents for evaluation of rash to right upper arm. Patient states that she [place] walking in [place] recently. Later she noted some redness and swelling to her distal anterior upper arm. She states that the redness has increased. There are some blisterlike lesions. No drainage from the wound. She thinks that it may have been a spider bite. No fevers or chills. No history of skin infections. No history of MRSA. Related Data Home Medications ?Medication ?Instructions ?Recorded ?Confirmed propranolol 40 mg tablet 40 mg PO BID 10/19/23 03/08/25 coenzyme Q10 75 mg capsule (Ultra 75 mg PO DAILY 07/19/24 03/08/25 CoQ10) magnesium 250 mg tablet 500 mg PO DAILY 10/24/24 03/08/25 mecobalamin (vitamin B12) 5,000 800 mcg PO DAILY 10/24/24 03/08/25 mcg disintegrating tablet cephalexin 500 mg capsule 500 mg PO QID 7 days #28 caps 03/08/25 Previous Rx's ?Medication ?Instructions ?Recorded cephalexin 500 mg capsule 500 mg PO QID 7 days #28 caps 03/08/25 Allergies Allergy/AdvReac Type Severity Reaction Status Date / Time amoxicillin Allergy Unknown Skin Rash Verified 03/08/25 07:28 doxycycline Allergy Unknown Skin Rash Unverified 03/08/25 07:28 Sulfa (Sulfonamide Allergy Cardiac Verified 03/08/25 07:28 Antibiotics) Dysrhythmia General Stated Complaint: InsectBite MERRICK: 4 Review of Systems Narrative: Remainder of review of systems otherwise negative except for as noted in the HPI x 5. Exam Narrative Exam Narrative: General: non-toxic, no respiratory distress, comfortable HEENT: normocephalic, atraumatic, lids and lashes normal, PERRL, EOMI, anicteric sclera, no conjunctival injection, moist oral mucosa Musculoskeletal: 4 cm x 2 cm area of erythema to right distal anterior upper arm, there are multiple small blisterlike lesions and small scab centrally, no fluctuance, no drainage, no erythematous streaking, otherwise full range of motion of arms and legs, no tenderness to palpation. no clubbing, cyanosis, or edema Neurologic: appropriate for age, strength normal Psych: alert and oriented Skin: As above, otherwise no petechiae, no lesions, warm and dry Course Vital Signs Vital signs: Vital Signs Temperature 36.8 C 03/08/25 07:25 Pulse 61 03/08/25 07:25 Respiratory Rate 16 03/08/25 07:25 Blood Pressure 103/62 03/08/25 07:25 Pulse Oximetry 100 03/08/25 07:25 Temperature 36.8 C 03/08/25 07:25 Temperature Source Oral 03/08/25 07:25 Pulse 61 03/08/25 07:25 Respiratory Rate 16 03/08/25 07:25 Blood Pressure 103/62 03/08/25 07:25 Blood Pressure Position Sitting 03/08/25 07:25 Pulse Oximetry 100 03/08/25 07:25 Oxygen Delivery Method Room Air 03/08/25 07:25 Oxygen Flow Rate 0 03/08/25 07:25 Pain Level 6 03/08/25 07:25 Medical Decision Making 45-year-old female presents for evaluation of wound to right anterior upper arm. Clinically concerning for cellulitis. No visible abscess requiring incision and drainage at this time. Patient has multiple allergies to antibiotics. Will start on Keflex. Area of erythema was demarcated by nursing. Patient understands if the redness should spread, she develops erythematous streaking, fevers, inability to tolerate antibiotic that she will need to return for reevaluation. PFSH All Active Problems Cellulitis (Acute) Small intestinal bacterial overgrowth (SIBO) (Acute) Dx at [facility] [place] Heart palpitations (Acute) Anxiety (Chronic) Medical History Back pain Chronic GERD Surgical History GERD - unknown surgical procedure (~2010) Craniotomy (~11/1984) benign meningioma removed. No residual deficits, no seizures Family History Mother No problems noted. Father , COPD No problems noted. Grandmother , renal failure No problems noted. Social History Smoking/Tobacco Use Status: Never Second Hand Exposure: No Smoking risk assessment performed?: Yes Alcohol Intake: current Alcohol Intake frequency: holidays/special occasions only Drug use: Never Substance use type: does not use Sexually active: Yes Current gender identity: female What is your relationship status?: Panel score (0-1 are the most socially isolated patients): 1 What type of physical activity do you participate in: none Seatbelt use: always Helmet use: Yes Do you feel safe at home: Yes Do you feel safe in your relationship?: Yes Female Reproductive History Menstrual control method: condoms History History 3 Para 2 Hx # Term Pregnancies Multiple births Hx # Pregnancies Ectopic pregnancies AB induced Hx Number of Living Children AB spontaneous 1
== END 2025-03-08 07:42 | disposition home or self-care (01) ==
PROVIDERS: Emergency Provider Emergency Medicine Emergency Medical Services; PCP Nurse Practitioner Family
DX: L03.113 Cellulitis of right upper limb (principal)
CPT/HCPCS: 99283